=== PATIENT | female | born 1960 | race Caucasian/White ===

== ENCOUNTER 2016-06-03 12:58 | Outpatient (CLI) | payer BC | END 2016-06-03 12:59 | disposition home or self-care (01) | DX: Z12.31 Encounter for screening mammogram for malignant neoplasm of breast (principal) ==

== ENCOUNTER 2016-08-22 11:01 | Outpatient (CLI) | payer BC ==
[2016-08-22 11:21] LABS: BASOPHILS # (AUTO) 0.1 10^3/uL (0.0-0.1); BASOPHILS % (AUTO) 1.2 %; EOSINOPHILS # (AUTO) 0.4 10^3/uL (0.0-0.7); EOSINOPHILS % (AUTO) 6.2 %; HCT - HEMATOCRIT 39.1 % (37.0-47.0); HGB - HEMOGLOBIN 13.4 g/dL (12.0-16.0); LYMPHOCYTES # (AUTO) 2.6 10^3/uL (1.5-3.5); LYMPHOCYTES % (AUTO) 39.6 %; MEAN CORPUSCULAR HEMOGLOBIN 29.6 pg (27.0-31.0); MEAN CORPUSCULAR HGB CONC 34.1 g/dL (32.0-36.0); MEAN CORPUSCULAR VOLUME 86.8 fL (81.0-99.0); MEAN PLATELET VOLUME 9.2 fL (7.9-10.8); MONOCYTES # (AUTO) 0.4 10^3/uL (0.0-1.0); MONOCYTES % (AUTO) 5.6 %; NEUTROPHILS # (AUTO) 3.1 10^3/uL (1.5-6.6); NEUTROPHILS % (AUTO) 47.4 %; NUCLEATED RED BLOOD CELLS AUTO 0.1 /100WBC; RED BLOOD COUNT 4.51 10^6/uL (4.20-5.40); RED CELL DISTRIBUTION WIDTH 12.4 % (12.0-15.0); UNCORRECTED WHITE BLOOD COUNT 6.5 x10^3/uL; WHITE BLOOD COUNT 6.5 x10^3/uL (4.8-10.8)
[2016-08-22 11:38] LABS: ALBUMIN/GLOBULIN RATIO 1.5 (1.0-2.2); BILIRUBIN,TOTAL 0.7 mg/dL (0.2-1.0); BUN - BLOOD UREA NITROGEN 20 mg/dL (6-20); CALCIUM 9.5 mg/dL (8.5-10.3); CARBON DIOXIDE - CO2 28 mmol/L (21-32); CHLORIDE 103 mmol/L (101-111); CHOL/HDL RATIO 5.9 (<4.4); CHOLESTEROL 267 mg/dL; CREATININE 0.8 mg/dL (0.4-1.0); GFR - MDRD 74 (>89); GLUCOSE 97 mg/dL (70-100); HDL CHOLESTEROL 45 mg/dL; POTASSIUM 4.1 mmol/L (3.5-5.0); SODIUM 140 mmol/L (135-145); TOTAL PROTEIN 7.3 g/dL (6.7-8.2); TRIGLYCERIDES 198 mg/dL; VLDL CHOLESTEROL 40 mg/dL
== END 2016-08-22 11:02 | disposition home or self-care (01) ==
LOC: LAB 11:01
PROVIDERS: ATTEND Physician Assistant Medical
DX: Z00.00 Encounter for general adult medical examination without abnormal findings (principal); E55.9 Vitamin D deficiency, unspecified; Z79.899 Other long term (current) drug therapy
CPT/HCPCS: 36415; 80053; 80061; 82306; 84443; 85025

== ENCOUNTER 2016-11-15 11:16 | Outpatient (CLI) | payer BC | END 2016-11-15 11:17 | disposition home or self-care (01) | LOC: LAB 11:16 | PROVIDERS: ATTEND Physician Assistant Medical | DX: E55.9 Vitamin D deficiency, unspecified (principal); Z79.899 Other long term (current) drug therapy | CPT/HCPCS: 36415; 82306 ==

== ENCOUNTER 2017-03-25 15:30 | Emergency (ER) | payer BC ==
[2017-03-25 15:58] LABS: BASOPHILS # (AUTO) 0.1 10^3/uL (0.0-0.1); BASOPHILS % (AUTO) 0.8 %; EOSINOPHILS # (AUTO) 0.1 10^3/uL (0.0-0.7); EOSINOPHILS % (AUTO) 1.9 %; HCT - HEMATOCRIT 41.9 % (37.0-47.0); HGB - HEMOGLOBIN 13.9 g/dL (12.0-16.0); LYMPHOCYTES # (AUTO) 2.5 10^3/uL (1.5-3.5); LYMPHOCYTES % (AUTO) 30.8 %; MEAN CORPUSCULAR HEMOGLOBIN 29.5 pg (27.0-31.0); MEAN CORPUSCULAR HGB CONC 33.2 g/dL (32.0-36.0); MEAN CORPUSCULAR VOLUME 88.8 fL (81.0-99.0); MEAN PLATELET VOLUME 9.1 fL (7.9-10.8); MONOCYTES # (AUTO) 0.5 10^3/uL (0.0-1.0); MONOCYTES % (AUTO) 6.2 %; NEUTROPHILS # (AUTO) 4.8 10^3/uL (1.5-6.6); NEUTROPHILS % (AUTO) 60.3 %; RED BLOOD COUNT 4.72 10^6/uL (4.20-5.40); RED CELL DISTRIBUTION WIDTH 12.6 % (12.0-15.0)
--- NOTE | 2017-03-25 16:04 | ED Physician Documentation ---
PD HPI CHEST PAIN - Stated complaint Stated Complaint: CHEST PX - Chief complaint Chief Complaint: Cardiac - History obtained from History obtained from: Patient, Family - History of Present Illness Timing - onset: Enter time (399), Today Timing - onset during: Sleep Timing - duration: Minutes Timing - details: Abrupt onset, Waxing and waning Quality: Pressure, Throbbing Location: Substernal Radiation: Other (across anterior chest) Improved by: Rest Associated symptoms: Feeling faint / dizzy. No: Shortness of air, Diaphoresis, Nausea, Vomiting, General Weakness, Palpitations, Cough Similar symptoms before: Has not had sx before Recently seen: Not recently seen - Additional information Additional information: 56-year-old female was awakened from sleep with a nightmare this morning at about 4:00 in the morning. She felt palpitations in her chest pressure which resolved and she was able to get back to sleep. She went to the gym this morning did her normal workout and felt no change or disability associated with her working out this morning. This afternoon at about 2:30 in the afternoon she had a second episode of palpitations and chest pressure. She indicates the pressure is substernal without radiation and without other salient features there was no diaphoresis nausea or shortness of breath. She does have a family history positive for father of a massive [place] in his 60s.She is now anxious regarding these episodes. She has withdrawn from caffeine and did need to take ibuprofen on an empty stomach last week. Review of Systems Constitutional: denies: Fever, Chills, Myalgias, Fatigue, Sweats Eyes: denies: Loss of vision, Decreased vision Ears: denies: Loss of hearing, Ear pain Nose: denies: Rhinorrhea / runny nose, Congestion Throat: denies: Sore throat Cardiac: reports: Chest pain / pressure, Palpitations. denies: Pedal edema, Calf pain Respiratory: denies: Dyspnea, Cough GI: denies: Abdominal Pain, Nausea, Vomiting : denies: Dysuria, Frequency Skin: denies: Rash, Lesions Musculoskeletal: denies: Neck pain, Back pain, Extremity pain, Joint pain, Extremity swelling Neurologic: denies: Generalized weakness, Focal weakness, Numbness PD PAST MEDICAL HISTORY - Past Medical History Past Medical History: Yes Respiratory: Asthma, Cystic fibrosis, Other Endocrine/Autoimmune: None GI: GERD, Colon polyps, Diverticulitis, Other : None HEENT: Chronic vision loss Psych: None Musculoskeletal: None Derm: None Other Past Medical History: ABPA - Past Surgical History Past Surgical History: Yes General: Appendectomy, Colonoscopy, EGD 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, 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 HEENT: Tonsil/Adenoidectomy - Present Medications Home Medications: Ambulatory Orders Medication Instructions Recorded Confirmed Esomeprazole Magnesium [Nexium 2 tab PO BID 01/12/16 03/25/17 24Hr] Albuterol 2.5 mg INH Q4H PRN 03/25/17 03/25/17 Sucralfate [Carafate] 1 gm PO ACHS #300 ml 03/25/17 - Allergies Allergies/Adverse Reactions: Allergies Allergy/AdvReac Type Severity Reaction Status Date / Time Gadolinium-Containing Allergy Severe Anaphylaxis Verified 03/25/17 15:43 Contrast Medi Iodinated Contrast- Oral and Allergy Severe Anaphylaxis Verified 03/25/17 15:43 IV Dye morphine Allergy Mild Unknown Verified 03/25/17 15:43 levofloxacin [From Levaquin] Allergy Unknown Verified 03/25/17 15:43 codeine [Codeine] AdvReac Intermediate Hallucinati Verified 03/25/17 15:43 ons mushrooms Allergy Severe Anaphylaxis Uncoded 03/25/17 15:43 walnuts Allergy Severe Anaphylaxis Uncoded 03/25/17 15:43 tape Allergy Intermediate Itching Uncoded 03/25/17 15:43 - Social History Does the pt smoke?: No Smoking Status: Never smoker Does the pt drink ETOH?: No Does the pt have substance abuse?: No - Immunizations Immunizations are current?: Yes - POLST Patient has POLST: Yes POLST Status: Full Code PD ED PE NORMAL - Vitals Vital signs reviewed: Yes (hypertensive) - General General: Alert and oriented X 3, No acute distress, Well developed/nourished - HEENT HEENT: Atraumatic, PERRL, EOMI - Neck Neck: Supple, no meningeal sign - Cardiac Cardiac: RRR, No murmur - Respiratory Respiratory: No respiratory distress, Clear bilaterally, Other (no chest wall tenderness) - Abdomen Abdomen: Soft, Non tender - Back Back: No CVA TTP, No spinal TTP - Derm Derm: Normal color, Warm and dry, No rash - Extremities Extremities: No deformity, No edema - Neuro Neuro: No motor deficit, No sensory deficit Eye Opening: Spontaneous Motor: Obeys Commands Verbal: Oriented GCS Score: 15 - Psych Psych: Normal mood, Normal affect Results - Vitals Vitals: Vital Signs - 24 hr 03/25/17 03/25/17 15:34 17:01 Temperature 36.7 C Heart Rate 88 92 Respiratory 20 17 Rate Blood Pressure 188/69 H 147/100 H O2 Saturation 99 98 Oxygen O2 Source Room air - EKG (time done) 1534 Rate: Rate (enter#) (95) Rhythm: NSR Ischemia: ST depression (subtle V2-4), Q waves (inferior ) Compare to prior EKG: Changed from prior EKG (SPT 3-14 the q waves are new as are diminished anterior forces and anderiro ST depression. ) Computer interpretation: Agree with computer - Labs Labs: Laboratory Tests 03/25/17 03/25/17 03/25/17 15:41 15:41 15:41 WBC 8.0 RBC 4.72 Hgb 13.9 Hct 41.9 MCV 88.8 MCH 29.5 MCHC 33.2 RDW 12.6 Plt Count 205 MPV 9.1 Neut # 4.8 Lymph # 2.5 [place] # 0.5 Eos # 0.1 Baso # 0.1 Absolute Nucleated RBC 0.00 Nucleated RBC % 0.0 Sodium 139 Potassium 3.3 L Chloride 102 Carbon Dioxide 26 Anion Gap 11.0 BUN 17 Creatinine 0.9 Estimated GFR (MDRD) 65 L Glucose 100 Calcium 10.0 Total Bilirubin 0.3 AST 25 ALT 27 Alkaline Phosphatase 73 Troponin I < 0.04 Total Protein 7.8 Albumin 5.0 Globulin 2.8 Albumin/Globulin Ratio 1.8 Lipase 22 Urine Color Urine Clarity Urine pH Ur Specific [place] Urine Protein Urine Glucose (UA) Urine Ketones Urine Occult Blood Urine Nitrite Urine Bilirubin Urine Urobilinogen Ur Leukocyte Esterase Urine RBC Urine WBC Ur Squamous Epith Cells Urine Bacteria Ur Microscopic Review Urine Culture Comments 03/25/17 03/25/17 16:18 17:35 WBC RBC Hgb Hct MCV MCH MCHC RDW Plt Count MPV Neut # Lymph # [place] # Eos # Baso # Absolute Nucleated RBC Nucleated RBC % Sodium Potassium Chloride Carbon Dioxide Anion Gap BUN Creatinine Estimated GFR (MDRD) Glucose Calcium Total Bilirubin AST ALT Alkaline Phosphatase Troponin I < 0.04 Total Protein Albumin Globulin Albumin/Globulin Ratio Lipase Urine Color YELLOW Urine Clarity CLEAR Urine pH 6.0 Ur Specific [place] <=1.005 Urine Protein NEGATIVE Urine Glucose (UA) NEGATIVE Urine Ketones NEGATIVE Urine Occult Blood SMALL H Urine Nitrite NEGATIVE Urine Bilirubin NEGATIVE Urine Urobilinogen 0.2 (NORMAL) Ur Leukocyte Esterase NEGATIVE Urine RBC 0-5 Urine WBC 0-3 Ur Squamous Epith Cells NONE SEEN Urine Bacteria None Seen Ur Microscopic Review INDICATED Urine Culture Comments NOT INDICATED - Rads (name of study) 2 veiw chest Radiology: Prelim report reviewed (Impression: No acute cardiopulmonary abnormality.), EMP read indepedently, See rad report Procedures - Bedside sono Bedside sono by EMP: With use of bedside ultrasound the kidneys are imaged there is no significant hydronephrosis on either side. The kidneys are sonographically nontender. PD MEDICAL DECISION MAKING - ED course Complexity details: reviewed old records, reviewed results, re-evaluated patient , considered differential, d/w patient, d/w family ED course: 56-year-old female presents to the emergency department with some atypical chest pressure that is nearly resolved at the time of her arrival to the department. She does not have any evidence of ST elevation [place]. She does have some new Q waves and some ST depression that is subtle but present. Her initial troponin is negative and she is administered a GI cocktail. The GI cocktail resolves the minimal symptoms that she is having in the ED temporarily. She does have a history of recent administration of ibuprofen on an empty stomach. She subsequently is given Carafate 1 g orally. A second troponin is ordered. Departure - Departure Disposition: 01 Home, Self Care Clinical Impression: Atypical chest pain Gastritis Qualifiers: Gastritis type: unspecified gastritis Chronicity: acute Gastritis bleeding: without bleeding Qualified Code(s): K29.00 - Acute gastritis without bleeding Condition: Stable Instructions: ED Chest Pain Atypical Unkn Cause, ED PUD Vs Gastritis Follow-Up: Sharmin Oswald PA-C [Primary Care Provider] - Prescriptions: Sucralfate [Carafate] 1 gm PO ACHS #300 ml Comments: Today in the Emergency Department your blood pressure was elevated. This can happen from the stress of the visit itself, from a current illness or circumstance or from uncontrolled hypertension. If you take blood pressure medications take your usual mediations, have your blood pressure re-checked in an appropriate setting and follow up any elevation with your primary care doctor.
[2017-03-25 16:11] LABS: ALBUMIN/GLOBULIN RATIO 1.8 (1.0-2.2); BILIRUBIN,TOTAL 0.3 mg/dL (0.2-1.0); CREATININE 0.9 mg/dL (0.4-1.0); POTASSIUM 3.3 mmol/L (3.5-5.0); TOTAL PROTEIN 7.8 g/dL (6.7-8.2)
[2017-03-25 16:33] LABS: BILIRUBIN,URINE NEGATIVE (NEGATIVE)
[2017-03-25 16:35] LABS: UA w/ MICROSCOPIC CHARGE YES
--- NOTE | 2017-03-25 16:46 | XRAY Preliminary Report ---
Exam: XR CHEST 2 VIEW PA/LAT IMPRESSION: No acute cardiopulmonary abnormality. [facility] SITE ID: [id number]
[2017-03-25 16:48] LABS: UR CULTURE IF IND NOT INDICATED; WBC,URINE 0-3 /HPF (0-5)
[2017-03-25] MEDS ORDERED: LIDOCAINE VISCOUS 2% 15 ML UDC MM STA (16:48)
--- NOTE | 2017-03-25 16:48 | XRAY Report ---
EXAM: CHEST RADIOGRAPHY EXAM DATE: 03/25/2017 04:17 PM. CLINICAL HISTORY: Chest pain. COMPARISON: CT chest 06/13/2015. Chest radiograph 06/10/2015. TECHNIQUE: 2 views. FINDINGS: Lungs/Pleura: Normal volumes. Interval resolution of previously demonstrated right middle lobe opacif ication. No new focal opacity. No pleural effusion or pneumothorax. Mediastinum: Normal cardiomediastinal contour. Other: Mild right convex curvature of the lower thoracic spine. IMPRESSION: No acute cardiopulmonary abnormality. [facility] Referring Provider Line: [phone] SITE ID: [id number]
[2017-03-25] MEDS ORDERED: MAG HYDROX/AL HYDROX/SIMETH 30 ML UDC PO STA (16:49)
[2017-03-25] MEDS ORDERED: POTASSIUM BICARB 25 MEQ TABLET PO STA (16:56)
[2017-03-25 17:02] VITALS: BP 147/100
[2017-03-25] MEDS ORDERED: SUCRALFATE 1 GM/10 ML UDC PO STA (17:15)
== END 2017-03-25 18:33 | disposition home or self-care (01) ==
LOC: ED 15:30
DX: R07.89 Other chest pain (principal); K29.00 Acute gastritis without bleeding; R03.0 Elevated blood-pressure reading, without diagnosis of hypertension; J45.909 Unspecified asthma, uncomplicated; J84.10 Pulmonary fibrosis, unspecified; K21.9 Gastro-esophageal reflux disease without esophagitis; Z86.010 Personal history of colon polyps; Z87.19 Personal history of other diseases of the digestive system
CPT/HCPCS: 36415; 71020; 80053; 81001; 83690; 84484; 85025; 93005; 99284; A9270; 81003; 87086

== ENCOUNTER 2017-06-06 07:59 | Outpatient (CLI) | payer BC ==
--- NOTE | 2017-06-07 17:44 | Mammography Report ---
DIGITAL SCREENING MAMMOGRAM: 06/06/2017 CLINICAL INDICATION: A 56-year-old with history of benign right breast biopsy for screening. COMPARISON: 06/2016, 06/2015, 05/2014, 01/2012, 10/2010, 06/2009. TECHNIQUE: Routine CC and MLO projections were obtained of the breasts. FINDINGS: The breasts demonstrate scattered fibroglandular densities bilaterally. Post-biopsy changes in the right breast are stable. Coarse, typically benign calcifications are present. No suspicious masses, clustered microcalcifications, or regions of architectural distortion are identified. IMPRESSION: BENIGN FINDINGS. RECOMMENDATION: ROUTINE ANNUAL SCREENING UNLESS OTHERWISE CLINICALLY INDICATED. BIRADS category 2 benign findings. STANDARD QUALIFYING STATEMENTS 1. This examination was reviewed with the aid of Computed-Aided Detection (CAD). 2. A negative or benign imaging report should not delay biopsy if clinically suspicious findings are present. Consider surgical consultation if warranted. More than 5% of cancers are not identified by imaging. 3. Dense breasts may obscure an underlying neoplasm. TD: 06/07/2017 17:43
== END 2017-06-06 08:00 | disposition home or self-care (01) ==
LOC: DI 07:59
PROVIDERS: ATTEND Physician Assistant Medical
DX: Z12.31 Encounter for screening mammogram for malignant neoplasm of breast (principal)
CPT/HCPCS: 77067

== ENCOUNTER 2017-12-25 06:46 | Outpatient (CLI) | payer BC ==
[2017-12-25 07:22] LABS: ALBUMIN 4.2 g/dL (3.2-5.5); ALBUMIN/GLOBULIN RATIO 1.6 (1.0-2.2); ALKALINE PHOSPHATASE 69 IU/L (42-121); ALT ALANINE AMINOTRANSFERASE 24 IU/L (10-60); AST ASPARTATE AMINOTRANSFERASE 22 IU/L (10-42); BILIRUBIN,TOTAL 0.3 mg/dL (0.2-1.0); BUN - BLOOD UREA NITROGEN 14 mg/dL (6-20); CALCIUM 8.8 mg/dL (8.5-10.3); CARBON DIOXIDE - CO2 25 mmol/L (21-32); CHLORIDE 106 mmol/L (101-111); CHOL/HDL RATIO 7.7 (<4.4); CHOLESTEROL 276 mg/dL; CREATININE 0.7 mg/dL (0.4-1.0); GFR - MDRD 86 (>89); GLUCOSE 116 mg/dL (70-100); HDL CHOLESTEROL 36 mg/dL; LDL CHOLESTEROL,CALCULATED 194 mg/dL; LDL/HDL RATIO 5.4 (<4.4); SODIUM 140 mmol/L (135-145); TOTAL PROTEIN 6.8 g/dL (6.7-8.2); VLDL CHOLESTEROL 46 mg/dL
[2017-12-25 09:00] LABS: BASOPHILS % (AUTO) 0.6 %; EOSINOPHILS # (AUTO) 0.3 10^3/uL (0.0-0.7); EOSINOPHILS % (AUTO) 4.2 %; HGB - HEMOGLOBIN 14.2 g/dL (12.0-16.0); LYMPHOCYTES # (AUTO) 2.5 10^3/uL (1.5-3.5); LYMPHOCYTES % (AUTO) 42.5 %; MEAN CORPUSCULAR HEMOGLOBIN 29.7 pg (27.0-31.0); MEAN CORPUSCULAR HGB CONC 33.8 g/dL (32.0-36.0); MEAN CORPUSCULAR VOLUME 87.9 fL (81.0-99.0); MEAN PLATELET VOLUME 9.9 fL (7.9-10.8); MONOCYTES # (AUTO) 0.5 10^3/uL (0.0-1.0); MONOCYTES % (AUTO) 7.9 %; NEUTROPHILS # (AUTO) 2.7 10^3/uL (1.5-6.6); NEUTROPHILS % (AUTO) 44.8 %; PLT - PLATELET COUNT 198 10^3/uL (130-450); RED BLOOD COUNT 4.78 10^6/uL (4.20-5.40); RED CELL DISTRIBUTION WIDTH 12.9 % (12.0-15.0)
[2017-12-26 13:12] LABS: HEPATITIS C ANTIBODY NON-REACTIVE (NON-REACTIVE)
== END 2017-12-25 06:47 | disposition home or self-care (01) ==
LOC: LAB 06:46
PROVIDERS: ATTEND Physician Assistant Medical
DX: Z00.00 Encounter for general adult medical examination without abnormal findings (principal); E55.9 Vitamin D deficiency, unspecified; Z79.899 Other long term (current) drug therapy; Z13.818 Encounter for screening for other digestive system disorders; E78.2 Mixed hyperlipidemia
CPT/HCPCS: 36415; 80053; 80061; 82306; 83721; 84443; 85025; 86803

== ENCOUNTER 2018-02-20 18:48 | Outpatient (CLI) | payer BC ==
[2018-02-20 19:31] LABS: ALBUMIN 4.5 g/dL (3.2-5.5); ALBUMIN/GLOBULIN RATIO 1.6 (1.0-2.2); ALKALINE PHOSPHATASE 68 IU/L (42-121); ALT ALANINE AMINOTRANSFERASE 27 IU/L (10-60); AST ASPARTATE AMINOTRANSFERASE 22 IU/L (10-42); BILIRUBIN,TOTAL 0.9 mg/dL (0.2-1.0); BUN - BLOOD UREA NITROGEN 11 mg/dL (6-20); CALCIUM 9.2 mg/dL (8.5-10.3); CARBON DIOXIDE - CO2 27 mmol/L (21-32); CHLORIDE 105 mmol/L (101-111); CHOL/HDL RATIO 4.6 (<4.4); CHOLESTEROL 161 mg/dL; CREATININE 0.9 mg/dL (0.4-1.0); GFR - MDRD 65 (>89); GLUCOSE 104 mg/dL (70-100); HDL CHOLESTEROL 35 mg/dL; LDL CHOLESTEROL,CALCULATED 91 mg/dL; LDL/HDL RATIO 2.6 (<4.4); SODIUM 138 mmol/L (135-145); TOTAL PROTEIN 7.3 g/dL (6.7-8.2); VLDL CHOLESTEROL 35 mg/dL
[2018-02-20 19:48] LABS: HB2 TOTAL 14.6 g/dL; HEMOGLOBIN A1C 0.56 g/dL; HEMOGLOBIN A1C % 5.7 % (4.6-6.2)
[2018-02-20 20:45] LABS: THYROID STIMULATING HORMONE 2.15 uIU/mL (0.34-5.60)
[2018-02-20 20:47] LABS: FREE T4 (FREE THYROXINE) 0.9 ng/dL (0.58-1.64)
== END 2018-02-20 18:49 | disposition home or self-care (01) ==
LOC: LAB 18:48
PROVIDERS: ATTEND Physician Assistant Medical
DX: R73.9 Hyperglycemia, unspecified (principal); Z79.899 Other long term (current) drug therapy; E78.2 Mixed hyperlipidemia; R94.6 Abnormal results of thyroid function studies
CPT/HCPCS: 36415; 80053; 80061; 81599; 83036; 83721; 84439; 84443; 84481

== ENCOUNTER 2018-03-12 13:08 | Day surgery (SDC) | payer BC ==
[2018-03-12] MEDS ORDERED: LACTATED RINGERS 1,000 ML IV ONE (13:25)
[2018-03-12] MEDS ORDERED: LIDO GARGLE 30 ML BOTTLE ONE (14:09)
[2018-03-12] MEDS ORDERED: fentaNYL 100 MCG/2 ML VIAL IVP ONE (14:11)
[2018-03-12] MEDS ORDERED: MIDAZOLAM 2 MG/2 ML VIAL IVP ONE (14:11)
[2018-03-12] MEDS ORDERED: BENZOCAINE/TETRACAINE/BUTAMBEN 20 GM TOP ONE (14:22)
[2018-03-12] MEDS ORDERED: LIDO GARGLE 30 ML BOTTLE PO ONE (14:22)
[2018-03-12] MEDS ORDERED: BENZOCAINE/TETRACAINE/BUTAMBEN 20 GM ONE (14:27)
[2018-03-12 16:01] VITALS: BP 104/60
== END 2018-03-12 13:09 | disposition home or self-care (01) ==
LOC: SDS 13:08
PROVIDERS: ATTEND Surgery
PROC: 0DB68ZX Excision of Stomach, Via Natural or Artificial Opening Endoscopic, Diagnostic (ICD-10-PCS; 2018-03-12)
PROC: 0DB98ZZ Excision of Duodenum, Via Natural or Artificial Opening Endoscopic (ICD-10-PCS; principal; 2018-03-12 14:15)
DX: K21.9 Gastro-esophageal reflux disease without esophagitis (principal); K29.70 Gastritis, unspecified, without bleeding; D13.2 Benign neoplasm of duodenum; J45.909 Unspecified asthma, uncomplicated; E66.9 Obesity, unspecified; Z68.34 Body mass index [BMI] 34.0-34.9, adult; Z79.51 Long term (current) use of inhaled steroids; Z87.11 Personal history of peptic ulcer disease; Z86.010 Personal history of colon polyps
CPT/HCPCS: 43239; 43251; 87081; A9270; J7120

== ENCOUNTER 2018-05-23 21:09 | Outpatient (CLI) | payer BC ==
[2018-05-23 21:48] LABS: CHOL/HDL RATIO 7.4 (<4.4); CHOLESTEROL 238 mg/dL; HDL CHOLESTEROL 32 mg/dL; LDL CHOLESTEROL,CALCULATED 166 mg/dL; LDL/HDL RATIO 5.2 (<4.4); VLDL CHOLESTEROL 40 mg/dL
== END 2018-05-23 21:10 | disposition home or self-care (01) ==
LOC: LAB 21:09
PROVIDERS: ATTEND Physician Assistant Medical
DX: E78.2 Mixed hyperlipidemia (principal); Z79.899 Other long term (current) drug therapy
CPT/HCPCS: 36415; 80061; 83721

== ENCOUNTER 2018-06-30 08:37 | Outpatient (CLI) | payer BC ==
--- NOTE | 2018-07-02 10:58 | Mammography Report ---
Reason: SCREENING MAMMO Procedure Date: 06/30/2018 Accession Number: [id number] / [id number] Procedure: SHERI - Screening Mammo w/Woo CPT Code: FULL RESULT: EXAM: Screening Mammo w/Woo DATE: 06/30/2018 9:23 AM CLINICAL HISTORY: Routine screening. No reported personal or family history of breast cancer. Prior history of benign right breast surgery. TECHNIQUE: (B) - Bilateral Bilateral CC and MLO views were obtained. COMPARISON: 06/06/2017 through 05/22/2014 FINDINGS: Bilateral breasts: There are multiple, stable, similar appearing, round and oval, circumscribed margin, benign-appearing masses. No suspicious masses, clustered microcalcifications, or regions of architectural distortion are identified. PARENCHYMAL PATTERN: (A) - The breasts demonstrate scattered fibroglandular densities bilaterally. IMPRESSION: Benign findings RECOMMENDATION: (ANNUAL) - Recommend routine annual screening mammography. BI-RADS CATEGORY: (2) - Benign Findings STANDARD QUALIFYING STATEMENTS: 1. This examination was not reviewed with the aid of Computer-Aided Detection (CAD). 2. A negative or benign imaging report should not preclude biopsy if clinically suspicious findings are present. 3. Dense breasts may obscure an underlying neoplasm. 4. This examination was reviewed with the aid of 3D breast imaging (tomosynthesis).
== END 2018-06-30 08:38 | disposition home or self-care (01) ==
LOC: DI 08:37
DX: Z12.31 Encounter for screening mammogram for malignant neoplasm of breast (principal)
CPT/HCPCS: 77063; 77067

== ENCOUNTER 2018-10-23 12:56 | Outpatient (CLI) | payer BC | END 2018-10-23 12:57 | disposition home or self-care (01) | LOC: LAB 12:56 | PROVIDERS: ATTEND Family Medicine | DX: Z00.00 Encounter for general adult medical examination without abnormal findings (principal) | CPT/HCPCS: 36415; 81599; 86480 ==

== ENCOUNTER 2018-11-09 13:15 | Emergency (ER) | payer BC ==
--- NOTE | 2018-11-09 13:38 | ED Physician Documentation ---
History of Present Illness - Stated complaint Stated Complaint: ABD PX - Chief complaint Chief Complaint: Abd Pain - History obtained from History obtained from: Patient - History of Present Illness Timing: Yesterday - Additonal information Additional information: Patient is a 58-year-old female with history of diverticulosis presenting with significant left lower quadrant pain that started at approximately 9 PM last night. Patient reports pain similar to previous episodes of diverticulitis. Pain does not radiate. Patient reports nausea without significant vomiting. No changes in urination. Normal bowel movement yesterday and slightly decreased bowel movement today. No fever. No other improving or worsening factors noted. Review of Systems Constitutional: denies: Fever GI: reports: Abdominal Pain, Nausea. 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 HEENT: Tonsil/Adenoidectomy - Present Medications Home Medications: Ambulatory Orders Medication Instructions Recorded Confirmed Esomeprazole Magnesium [Nexium 2 tab PO BID 01/12/16 03/12/18 24Hr] Albuterol 2.5 mg INH Q4H PRN 03/25/17 03/12/18 Metronidazole [Flagyl] 500 mg PO TID 7 Days tablet 11/09/18 - Allergies Allergies/Adverse Reactions: Allergies Allergy/AdvReac Type Severity Reaction Status Date / Time Gadolinium-Containing Allergy Severe Anaphylaxis Verified 03/25/17 15:43 Contrast Medi Iodinated Contrast Media Allergy Severe Anaphylaxis Verified 03/25/17 15:43 morphine Allergy Mild Unknown Verified 03/25/17 15:43 ciprofloxacin [From Cipro] Allergy Unknown Verified 11/09/18 13:26 levofloxacin [From Levaquin] Allergy Unknown Verified 03/25/17 15:43 codeine [Codeine] AdvReac Intermediate Hallucinati Verified 03/25/17 15:43 ons latex AdvReac Itching Verified 03/09/18 14:34 mushrooms Allergy Severe Anaphylaxis Uncoded 03/25/17 15:43 walnuts Allergy Severe Anaphylaxis Uncoded 03/25/17 15:43 tape Allergy Intermediate Itching Uncoded 03/25/17 15:43 - Social History Does the pt smoke?: No Smoking Status: Never smoker Does the pt drink ETOH?: No Does the pt have substance abuse?: No - Immunizations Immunizations are current?: Yes - POLST Patient has POLST: Yes POLST Status: Full Code PD ED PE NORMAL - Vitals Vital signs reviewed: Yes - General General: Alert and oriented X 3, No acute distress, Well developed/nourished, Other (Uncomfortable appearing) - HEENT HEENT: Atraumatic, Moist mucous membranes - Neck Neck: Supple, no meningeal sign - Cardiac Cardiac: RRR, No murmur - Respiratory Respiratory: No respiratory distress, Clear bilaterally - Abdomen Abdomen: Soft, Non distended. No: Non tender (Left LLQ tenderness) - Derm Derm: Normal color, Warm and dry, No rash - Extremities Extremities: No deformity, No tenderness to palpate - Neuro Neuro: Alert and oriented X 3, No motor deficit, No sensory deficit - Psych Psych: Normal mood, Normal affect Results - Vitals Vitals: Vital Signs - 24 hr 11/09/18 11/09/18 11/09/18 13:22 15:00 15:24 Temperature 35.7 C L 36.7 C Heart Rate 108 H 85 86 Respiratory 14 16 16 Rate Blood Pressure 149/83 H 132/70 H 132/70 H O2 Saturation 100 98 98 Oxygen O2 Source Room air - Labs Labs: Laboratory Tests 11/09/18 11/09/18 11/09/18 13:52 13:52 13:52 WBC 11.3 H RBC 4.81 Hgb 14.0 Hct 43.0 MCV 89.4 MCH 29.1 MCHC 32.6 RDW 12.2 Plt Count 206 MPV 11.3 H Neut # (Auto) 7.8 H Lymph # (Auto) 2.3 [place] # (Auto) 0.9 Eos # (Auto) 0.2 Baso # (Auto) 0.0 Absolute Nucleated RBC 0.00 Nucleated RBC % 0.0 Sodium 142 Potassium 3.8 Chloride 104 Carbon Dioxide 24 Anion Gap 14.0 H BUN 13 Creatinine 0.8 Estimated GFR (MDRD) 74 L Glucose 114 H Lactic Acid 0.8 Calcium 9.7 Total Bilirubin 0.8 AST 14 ALT 18 Alkaline Phosphatase 83 Total Protein 7.6 Albumin 4.3 Globulin 3.3 Albumin/Globulin Ratio 1.3 Lipase 24 Urine Color Urine Clarity Urine pH Ur Specific [place] Urine Protein Urine Glucose (UA) Urine Ketones Urine Occult Blood Urine Nitrite Urine Bilirubin Urine Urobilinogen Ur Leukocyte Esterase Urine RBC Urine WBC Ur Squamous Epith Cells Urine Bacteria Ur Microscopic Review Urine Culture Comments 11/09/18 14:20 WBC RBC Hgb Hct MCV MCH MCHC RDW Plt Count MPV Neut # (Auto) Lymph # (Auto) [place] # (Auto) Eos # (Auto) Baso # (Auto) Absolute Nucleated RBC Nucleated RBC % Sodium Potassium Chloride Carbon Dioxide Anion Gap BUN Creatinine Estimated GFR (MDRD) Glucose Lactic Acid Calcium Total Bilirubin AST ALT Alkaline Phosphatase Total Protein Albumin Globulin Albumin/Globulin Ratio Lipase Urine Color YELLOW Urine Clarity CLEAR Urine pH 6.5 Ur Specific [place] <=1.005 Urine Protein NEGATIVE Urine Glucose (UA) NEGATIVE Urine Ketones NEGATIVE Urine Occult Blood MODERATE H Urine Nitrite NEGATIVE Urine Bilirubin NEGATIVE Urine Urobilinogen 0.2 (NORMAL) Ur Leukocyte Esterase NEGATIVE Urine RBC 0-5 Urine WBC 0-3 Ur Squamous Epith Cells RARE Squamous Urine Bacteria None Seen Ur Microscopic Review INDICATED Urine Culture Comments NOT INDICATED PD MEDICAL DECISION MAKING - ED course Complexity details: reviewed results, re-evaluated patient, considered differential, d/w patient ED course: Patient presenting with left lower quadrant abdominal discomfort that is similar to her previous episodes of diverticulitis. Patient started on IV fluids and declined nausea and pain medication. Screening lab work returned relatively unremarkable, as did urinalysis. CT imaging found incidental findings, as well as colon wall thickening although no other obstruction, abscess, or diverticulitis changes. Advised patient of results and recommendations, as well as provided her with read of CT which included incidental finding information. Discussed treatment of general colitis with antibiotics. Patient is unable to tolerate ciprofloxacin or medications in that family and decided that Flagyl will be most appropriate otherwise. Also discussed other supportive cares, return precautions, and follow-up. Patient voiced understanding and is comfort able with discharge plan. First dose of antibiotics provided in the ED. Departure - Departure Disposition: 01 Home, Self Care Clinical Impression: Abdominal pain Qualifiers: Abdominal location: left lower quadrant Qualified Code(s): R10.32 - Left lower quadrant pain Condition: Good Instructions: ED Abdominal Pain Unkn Cause Follow-Up: Viral Charles MD [Primary Care Provider] - Within 3 Days Prescriptions: Metronidazole [Flagyl] 500 mg PO TID 7 Days tablet Comments: Please take antibiotics as prescribed for colitis changes. Recommend hydration with Powerade/Gatorade and advancing diet as tolerated with small, bland meals. Do recommend taking antibiotics with a small amount of food to avoid upset stomach.Please follow-up with primary care physician in next 2 to 3 days and return to ED sooner if experience worsening symptoms or other concerns.
[2018-11-09] MEDS ORDERED: SODIUM CHLORIDE 0.9% 1,000 ML IV ONE (13:44)
[2018-11-09 13:59] LABS: BASOPHILS % (AUTO) 0.4 %; EOSINOPHILS # (AUTO) 0.2 10^3/uL (0.0-0.7); LYMPHOCYTES # (AUTO) 2.3 10^3/uL (1.5-3.5); LYMPHOCYTES % (AUTO) 20.4 %; MEAN CORPUSCULAR HEMOGLOBIN 29.1 pg (27.0-31.0); MEAN CORPUSCULAR HGB CONC 32.6 g/dL (32.0-36.0); MEAN CORPUSCULAR VOLUME 89.4 fL (81.0-99.0); MEAN PLATELET VOLUME 11.3 fL (7.9-10.8); MONOCYTES # (AUTO) 0.9 10^3/uL (0.0-1.0); MONOCYTES % (AUTO) 7.6 %; NEUTROPHILS # (AUTO) 7.8 10^3/uL (1.5-6.6); NEUTROPHILS % (AUTO) 69.2 %; PLT - PLATELET COUNT 206 10^3/uL (130-450); RED BLOOD COUNT 4.81 10^6/uL (4.20-5.40); RED CELL DISTRIBUTION WIDTH 12.2 % (12.0-15.0); WHITE BLOOD COUNT 11.3 x10^3/uL (4.8-10.8)
[2018-11-09 14:11] LABS: ALBUMIN 4.3 g/dL (3.2-5.5); ALBUMIN/GLOBULIN RATIO 1.3 (1.0-2.2); BILIRUBIN,TOTAL 0.8 mg/dL (0.2-1.0); CALCIUM 9.7 mg/dL (8.5-10.3); CREATININE 0.8 mg/dL (0.4-1.0); TOTAL PROTEIN 7.6 g/dL (6.7-8.2)
[2018-11-09] MEDS ORDERED: IOVERSOL 320 100 ML VIAL IVP ONE ×2 (14:44→15:21)
[2018-11-09] MEDS ORDERED: diphenhydrAMINE 25 MG CAPSULE PO STA (14:45)
[2018-11-09 15:00] LABS: BILIRUBIN,URINE NEGATIVE (NEGATIVE); GLUCOSE, URINE (UA) NEGATIVE (NEGATIVE); KETONES,URINE (UA) NEGATIVE (NEGATIVE); LEUKOCYTE ESTERASE, URINE NEGATIVE (NEGATIVE); NITRITE,URINE NEGATIVE (NEGATIVE); OCCULT BLOOD,URINE MODERATE (NEGATIVE); PH,URINE 6.5 PH (5.0-7.5); PROTEIN,URINE NEGATIVE (NEGATIVE); UROBILINOGEN,URINE 0.2 (NORMAL) E.U./dL (NORMAL)
[2018-11-09 15:01] LABS: CLARITY,URINE CLEAR (CLEAR)
[2018-11-09 15:12] LABS: RBC,URINE 0-5 /HPF (0-5)
[2018-11-09 15:13] LABS: BACTERIA,URINE None Seen /HPF (None Seen); SQUAMOUS EPITHELIAL CELL,UR RARE Squamous (<= Few)
--- NOTE | 2018-11-09 15:48 | CT Report ---
Reason: Diverticulosis history, left lower quadrant pain Procedure Date: 11/09/2018 Accession Number: [id number] / [id number] Procedure: CT - Abdomen/Pelvis W CPT Code: FULL RESULT: EXAM: CT ABDOMEN AND PELVIS EXAM DATE: 11/09/2018 03:26 PM. CLINICAL HISTORY: Diverticulosis history, left lower quadrant pain. COMPARISONS: None. TECHNIQUE: Routine helical CT imaging was performed through the abdomen and pelvis. IV contrast: OPTI 320 90ML. Enteric contrast: No. Reconstructions: Coronal and sagittal. In accordance with CT protocol optimization, one or more of the following dose reduction techniques were utilized for this exam: automated exposure control, adjustment of mA and/or KV based on patient size, or use of iterative reconstructive technique. FINDINGS: Lung Bases: Unremarkable. Liver: Unremarkable. Gallbladder/Bile Ducts: Unremarkable. Spleen: Normal. Pancreas: Normal. Adrenal Glands: Normal. Kidneys: No stone, masses or hydronephrosis. Peritoneal Cavity/Bowel: There is mild colon diverticulosis. There is thickened bowel wall with pericolic fat stranding in the proximal sigmoid colon and small amount of pelvic free fluid, without loculated fluid, free air or adenopathy. No small bowel dilatation, or acute inflammatory process. The appendix is not visualized and no mass, fluid collection or fat stranding the bilateral abdomen seen. Pelvic Organs: There are multiple small calcified foci in the right ovary with a small simple cyst, 0.8 cm, without ovarian mass, complex cyst or enlargement. The bladder and visualized pelvic organs are within normal limits. Vasculature: No aneurysms or other significant abnormality. Bones: No significant abnormality. Other: There is small umbilical hernia, 1 cm containing fat without fat stranding. IMPRESSION: 1. Proximal sigmoid colon diverticulosis, with small amount for 20 pelvis, without drainable abscess. 2. Incidental note is made of multiple small calcified foci in the right ovary with a small simple cyst, 0.8 cm, without ovarian mass, complex cyst or enlargement; likely benign process, recommend pelvic ultrasound follow-up. [facility]
[2018-11-09] MEDS ORDERED: metroNIDAZOLE 250 MG TABLET PO STA (16:29)
[2018-11-09 16:39] VITALS: BP 132/81
== END 2018-11-09 16:40 | disposition home or self-care (01) ==
LOC: ED 13:15
DX: R10.32 Left lower quadrant pain (principal)
CPT/HCPCS: 36415; 74177; 80053; 81001; 83605; 83690; 85025; 96360; 99283; 99284; A9270; Q9967; 81003; 87086

== ENCOUNTER 2019-05-24 09:24 | Emergency (ER) | payer BC ==
--- NOTE | 2019-05-24 10:43 | ED Physician Documentation ---
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 No: Travel, Immunocompromised Similar symptoms before: Has not had sx before Review of Systems Constitutional: reports: Fever, Chills, Myalgias Eyes: reports: Photophobia (mild) Nose: reports: Rhinorrhea / runny nose, Congestion Throat: reports: Sore throat Cardiac: denies: Chest pain / pressure, Palpitations Respiratory: reports: Dyspnea, Cough Skin: denies: Rash Musculoskeletal: reports: Neck pain, Back pain Neurologic: reports: Generalized weakness. 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 HEENT: Tonsil/Adenoidectomy - Present Medications Home Medications: Ambulatory Orders Medication Instructions Recorded Confirmed Esomeprazole Magnesium [Nexium 2 tab PO BID 01/12/16 03/12/18 24Hr] Albuterol 2.5 mg INH Q4H PRN 03/25/17 03/12/18 Metronidazole [Flagyl] 500 mg PO TID 7 Days tablet 11/09/18 Doxycycline Monohydrate 100 mg PO BID #14 tablet 05/24/19 Ondansetron Odt [Zofran] 4 mg TL Q6H PRN #10 tablet 05/24/19 dexAMETHasone [Decadron] 4 mg PO DAILY #5 tablet 05/24/19 - Allergies Allergies/Adverse Reactions: Allergies Allergy/AdvReac Type Severity Reaction Status Date / Time Gadolinium-Containing Allergy Severe Anaphylaxis Verified 05/24/19 09:28 Contrast Medi Iodinated Contrast Media Allergy Severe Anaphylaxis Verified 02/21/20 09:28 morphine Allergy Mild Unknown Verified 05/24/19 09:28 ciprofloxacin [From Cipro] Allergy Unknown Verified 05/24/19 09:28 levofloxacin [From Levaquin] Allergy Unknown Verified 05/24/19 09:28 NSAIDS (Non-Steroidal Allergy Nausea Verified 05/24/19 09:45 Anti-Inflamma codeine [Codeine] AdvReac Intermediate Hallucinati Verified 05/24/19 09:28 ons latex AdvReac Itching Verified 05/24/19 09:28 mushrooms Allergy Severe Anaphylaxis Uncoded 05/24/19 09:28 walnuts Allergy Severe Anaphylaxis Uncoded 05/24/19 09:28 tape Allergy Intermediate Itching Uncoded 05/24/19 09:28 - Social History Does the pt smoke?: No Smoking Status: Never smoker Does the pt drink ETOH?: No Does the pt have substance abuse?: No - Immunizations Immunizations are current?: Yes - POLST Patient has POLST: Yes POLST Status: Full Code PD ED PE NORMAL - Vitals Vital signs reviewed: Yes - General General: Alert and oriented X 3, Well developed/nourished - HEENT HEENT: Atraumatic, EOMI, Ears normal, Pharynx benign - Neck Neck: No bony TTP, No adenopathy, Other (tender in posterior neck muscles, but still able to have ROM. 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, No motor deficit, No sensory deficit, Normal speech Eye Opening: Spontaneous Motor: Obeys Commands Verbal: Oriented GCS Score: 15 Results - Vitals Vitals: Vital Signs - 24 hr 05/24/19 05/24/19 09:29 11:33 Temperature 37.4 C Heart Rate 97 94 Respiratory 14 18 Rate Blood Pressure 115/80 122/79 O2 Saturation 93 97 Oxygen O2 Source Room air - Labs Labs: Laboratory Tests 05/24/19 05/24/19 05/24/19 09:34 11:42 11:42 WBC RBC Hgb Hct MCV MCH MCHC RDW Plt Count MPV Neut # (Auto) Lymph # (Auto) [place] # (Auto) Eos # (Auto) Baso # (Auto) Absolute Nucleated RBC Nucleated RBC % ESR 14 Sodium Potassium Chloride Carbon Dioxide Anion Gap BUN Creatinine Estimated GFR (MDRD) Glucose Lactic Acid 0.7 Calcium Total Bilirubin AST ALT Alkaline Phosphatase Total Protein Albumin Globulin Albumin/Globulin Ratio Lipase Influenza A (Rapid) Negative Influenza B (Rapid) Negative 05/24/19 05/24/19 11:42 11:42 WBC 5.0 RBC 4.66 Hgb 13.8 Hct 42.1 MCV 90.3 MCH 29.6 MCHC 32.8 RDW 12.2 Plt Count 181 MPV 10.9 H Neut # (Auto) 3.8 Lymph # (Auto) 0.6 L [place] # (Auto) 0.5 Eos # (Auto) 0.0 Baso # (Auto) 0.0 Absolute Nucleated RBC 0.00 Nucleated RBC % 0.0 ESR Sodium 138 Potassium 3.7 Chloride 102 Carbon Dioxide 27 Anion Gap 9.0 BUN 11 Creatinine 1.0 Estimated GFR (MDRD) 57 L Glucose 113 H Lactic Acid Calcium 9.3 Total Bilirubin 0.8 AST 18 ALT 26 Alkaline Phosphatase 61 Total Protein 7.4 Albumin 4.3 Globulin 3.1 Albumin/Globulin Ratio 1.4 Lipase 28 Influenza A (Rapid) Influenza B (Rapid) PD MEDICAL DECISION MAKING - ED course Complexity details: considered differential (The patient does have general flulike symptoms with headache. Onset was yesterday. She had previously had a cough but was improving some with that and did not have any purulent sputum per se. She did have some pain with breathing on the upper right back which she states is common for her due to previous scarring and pneumonia. There was concern for potential meningitic involvement. She was given IV fluids and Toradol and acetaminophen here and is feeling improved enough. Shared decision with the patient in discussion of lumbar puncture or not and the patient opts n ot to pursue a lumbar puncture at this time.), d/w patient Departure - Departure Disposition: 01 Home, Self Care Clinical Impression: Flu-like symptoms Headache Qualifiers: Headache type: unspecified Headache chronicity pattern: acute headache Intractability: not intractable Qualified Code(s): R51 - Headache Pneumonia Qualifiers: Pneumonia type: due to unspecified organism Laterality: right Lung location: upper lobe of lung Qualified Code(s): J18.9 - Pneumonia, unspecified organism Condition: Stable Record reviewed to determine appropriate education?: Yes Instructions: ED Pneumonia Adult, ED Viral Syndrome Follow-Up: Sharmin Santos ARNP, PEDIATRIC SPEECH THERAPIST-C [Primary Care Provider] - Prescriptions: dexAMETHasone [Decadron] 4 mg PO DAILY #5 tablet Doxycycline Monohydrate 100 mg PO BID #14 tablet Ondansetron Odt [Zofran] 4 mg TL Q6H PRN #10 tablet PRN Reason: Nausea / Vomiting Comments: Stay well-hydrated. Ondansetron if needed for nausea. Use Tylenol 650 mg 4 times a day for fevers and pains. Decadron steroid daily for the next several days to decrease inflammation. The chest x-ray showed a small patchiness in the right upper lung so consideration of a pneumonia. This still could be viral but we can treated with doxycycline in case. Recheck if not improved well over the next couple of days regarding headache and general wellness. Recheck if consistent symptoms or worsening. Discharge Date/Time: 05/24/19 13:36
[2019-05-24] MEDS ORDERED: ACETAMINOPHEN 1,000 MG/100 ML 100 ML IV STA (11:28)
[2019-05-24] MEDS ORDERED: SODIUM CHLORIDE 0.9% 1,000 ML IV ONE ×2 (11:28→11:29)
[2019-05-24] MEDS ORDERED: DEXAMETHASONE 10 MG/ML VIAL IVP STA (11:30)
[2019-05-24 11:34] VITALS: BP 122/79
[2019-05-24 11:59] LABS: BASOPHILS % (AUTO) 0.2 %; EOSINOPHILS % (AUTO) 0.6 %; HGB - HEMOGLOBIN 13.8 g/dL (12.0-16.0); LYMPHOCYTES # (AUTO) 0.6 10^3/uL (1.5-3.5); MEAN CORPUSCULAR HEMOGLOBIN 29.6 pg (27.0-31.0); MEAN CORPUSCULAR HGB CONC 32.8 g/dL (32.0-36.0); MEAN CORPUSCULAR VOLUME 90.3 fL (81.0-99.0); MEAN PLATELET VOLUME 10.9 fL (7.9-10.8); MONOCYTES # (AUTO) 0.5 10^3/uL (0.0-1.0); MONOCYTES % (AUTO) 10.4 %; NEUTROPHILS # (AUTO) 3.8 10^3/uL (1.5-6.6); NEUTROPHILS % (AUTO) 76.6 %; PLT - PLATELET COUNT 181 10^3/uL (130-450); RED BLOOD COUNT 4.66 10^6/uL (4.20-5.40); RED CELL DISTRIBUTION WIDTH 12.2 % (12.0-15.0)
--- NOTE | 2019-05-24 12:01 | XRAY Report ---
Reason: fevers/dyspnea, mild cough Procedure Date: 05/24/2019 Accession Number: [id number] / [id number] Procedure: XR - Chest 1 View X-Ray CPT Code: 98209 Final Report FULL RESULT: EXAM: CHEST RADIOGRAPHY EXAM DATE: 05/24/2019 11:39 AM. CLINICAL HISTORY: Fevers/dyspnea, mild cough. COMPARISON: CHEST 2 VIEW PA/LAT 03/25/2017 4:04 PM. TECHNIQUE: 1 view. FINDINGS: Lungs/Pleura: Subtle irregular opacities in the right upper lobe. No pleural effusion or pneumothorax. Mediastinum: Within exam limitations, the cardiomediastinal contour is normal. Other: None. IMPRESSION: Right upper lobe airspace disease. RADIA
[2019-05-24 12:14] LABS: ALBUMIN 4.3 g/dL (3.2-5.5); ALBUMIN/GLOBULIN RATIO 1.4 (1.0-2.2); BILIRUBIN,TOTAL 0.8 mg/dL (0.2-1.0); CALCIUM 9.3 mg/dL (8.5-10.3); TOTAL PROTEIN 7.4 g/dL (6.7-8.2)
[2019-05-24] MEDS ORDERED: KETOROLAC 30 MG/ML VIAL IVP STA (12:59)
[2019-05-24] MEDS ORDERED: DOXYCYCLINE 100 MG TABLET PO STA (13:16)
== END 2019-05-24 13:36 | disposition home or self-care (01) ==
LOC: ED 09:24
DX: R51 Headache (principal); R68.89 Other general symptoms and signs; E84.9 Cystic fibrosis, unspecified; J45.909 Unspecified asthma, uncomplicated; H54.7 Unspecified visual loss; Z79.51 Long term (current) use of inhaled steroids
CPT/HCPCS: 36415; 71045; 80053; 83605; 83690; 85025; 85651; 87275; 87276; 96365; 96366; 96375; 99284; A9270; J0131

== ENCOUNTER 2019-06-28 08:58 | Outpatient (CLI) | payer BC ==
--- NOTE | 2019-07-01 10:20 | Mammography Report ---
Reason: ROUTINE MAMMO Procedure Date: 06/28/2019 Accession Number: [id number] / [id number] Procedure: SHERI - Screening Mammo w/Woo CPT Code: Final Report FULL RESULT: EXAM: Screening Mammo w/Woo DATE: 06/28/2019 9:23 AM CLINICAL HISTORY: Screening encounter. History of benign right breast biopsy in 1993. TECHNIQUE: (B) - Bilateral CC, laterally exaggerated CC, MLO views were obtained. COMPARISON: 06/30/2018 through 06/30/2009. PARENCHYMAL PATTERN: (A) - The breast(s) demonstrate(s) scattered fibroglandular densities. FINDINGS: There are no suspicious masses, calcifications, or areas of distortion. IMPRESSION: Negative examination. BI-RADS category 1. RECOMMENDATION: (ANNUAL) - Recommend routine annual screening mammography. BI-RADS CATEGORY: (1) - Negative. STANDARD QUALIFYING STATEMENTS: 1. This examination was not reviewed with the aid of Computer-Aided Detection (CAD). 2. A negative or benign imaging report should not preclude biopsy if clinically suspicious findings are present. 3. Dense breasts may obscure an underlying neoplasm. 4. This examination was reviewed with the aid of 3D breast imaging (tomosynthesis).
== END 2019-06-28 08:59 | disposition home or self-care (01) ==
LOC: DI 08:58
DX: Z12.31 Encounter for screening mammogram for malignant neoplasm of breast (principal)
CPT/HCPCS: 77063; 77067

== ENCOUNTER 2020-01-05 13:10 | Emergency (ER) | payer OTHER, BC ==
[2020-01-05 13:24] VITALS: BP 148/91
--- NOTE | 2020-01-05 13:27 | ED Physician Documentation ---
History of Present Illness - Stated complaint Stated Complaint: RIGHT ANKLE INJURY - History obtained from History obtained from: Patient - History of Present Illness Timing: Today Pain level max: 8 Pain level now: 2 - Additonal information Additional information: Patient is a 59-year-old female who presents to the emergency department with right Achilles pain. Has a history of prior partial tendon rupture in the right Achilles. She states that she was at work today when she tripped, fell forward and now has pain in the right Achilles area. Worse with movement, better with rest. 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 HEENT: Tonsil/Adenoidectomy - Present Medications Home Medications: Ambulatory Orders Medication Instructions Recorded Confirmed Esomeprazole Magnesium [Nexium 2 tab PO BID 01/12/16 03/12/18 24Hr] Albuterol 2.5 mg INH Q4H PRN 03/25/17 03/12/18 Atorvastatin [Lipitor] 10 mg ORAL DAILY 01/05/20 01/05/20 EPINEPHrine [Epinephrine] 0.15 mg IJ 01/05/20 Fluticasone Propion/Salmeterol 01/05/20 [Wixela 100-50 Inhub] - Allergies Allergies/Adverse Reactions: Allergies Allergy/AdvReac Type Severity Reaction Status Date / Time Gadolinium-Containing Allergy Severe Anaphylaxis Verified 05/24/19 09:28 Contrast Medi Iodinated Contrast Media Allergy Severe Anaphylaxis Verified 05/24/19 09:28 morphine Allergy Mild Unknown Verified 05/24/19 09:28 ciprofloxacin [From Cipro] Allergy Unknown Verified 05/24/19 09:28 levofloxacin [From Levaquin] Allergy Unknown Verified 05/24/19 09:28 NSAIDS (Non-Steroidal Allergy Nausea Verified 05/24/19 09:45 Anti-Inflamma codeine [Codeine] AdvReac Intermediate Hallucinati Verified 05/24/19 09:28 ons latex AdvReac Itching Verified 05/24/19 09:28 mushrooms Allergy Severe Anaphylaxis Uncoded 05/24/19 09:28 walnuts Allergy Severe Anaphylaxis Uncoded 05/24/19 09:28 tape Allergy Intermediate Itching Uncoded 05/24/19 09:28 - Social History Does the pt smoke?: No Smoking Status: Never smoker Does the pt drink ETOH?: No Does the pt have substance abuse?: No - Immunizations Immunizations are current?: Yes - POLST Patient has POLST: Yes POLST Status: Full Code PD ED PE NORMAL - Vitals Vital signs reviewed: Yes - General General: Alert and oriented X 3, No acute distress - HEENT HEENT: Moist mucous membranes - Derm Derm: Warm and dry - Extremities Extremities: Other (Tender to palpation over the distal right Achilles. Mild swelling. Plantar flexion of the foot present with squeezing of the calf muscle. Neurovascular intact. No bony tenderness) - Neuro Neuro: Alert and oriented X 3 - Psych Psych: Normal mood, Normal affect Results - Vitals Vitals: Vital Signs - 24 hr 01/05/20 13:16 Temperature 36.7 C Heart Rate 87 Respiratory 18 Rate Blood Pressure 148/91 H O2 Saturation 99 Oxygen O2 Source Room air PD MEDICAL DECISION MAKING - ED course Complexity details: considered differential, d/w patient ED course: Patient with a right Achilles strain/partial rupture. Placed in a walking boot. Feels better. She is ambulating well. We will have her follow-up with orthopedics for further care. She already sees Dr. Acuna and orthopedics for her prior injuries. L&I paperwork filled out. Patient counseled regarding signs and symptoms for which I believe and urgent re-evaluation would be necessary. Patient with good understanding of and agreement to plan and is comfortable going home at this time This document was made in part using voice recognition software. While efforts are made to proofread this document, sound alike and grammatical errors may occur. Departure - Departure Disposition: 01 Home, Self Care Clinical Impression: Strain of Achilles tendon Qualifiers: Encounter type: initial encounter Laterality: right Qualified Code(s): S86.011A - Strain of right Achilles tendon, initial encounter Condition: Good Instructions: ED Tendon Rupture Achilles Follow-Up: Viral Charles MD [Primary Care Provider] - [facility] [Provider Group] - Within 1 week Comments: Wear the boot until released by orthopedics. Return if you worsen.
== END 2020-01-05 13:50 | disposition home or self-care (01) ==
LOC: ED 13:10
DX: S86.011A Strain of right Achilles tendon, initial encounter (principal); W01.0XXA Fall on same level from slipping, tripping and stumbling without subsequent striking against object, initial encounter; Y92.89 Other specified places as the place of occurrence of the external cause; Y99.0 Civilian activity done for income or pay
CPT/HCPCS: 99282

== ENCOUNTER 2020-02-02 01:59 | Outpatient (CLI) | payer OTHER, BC ==
--- NOTE | 2020-02-02 08:47 | XRAY Report ---
PROCEDURE: Tib/Fib RT INDICATIONS: ACHILLES TENDINITIS TECHNIQUE: 2 views of the tibia and fibula were acquired. COMPARISON: Correlation is made with the accompanying ankle plain films. FINDINGS: Bones: No fractures or dislocations. No suspicious bony lesions. 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 IMPRESSION: No significant plain film abnormality can be seen. Reviewed by: Gaston Marroquin MD on 02/02/2020 7:45 AM [facility] Approved by: Gaston Marroquin MD on 02/02/2020 7:45 AM [facility] Station ID: [id number]
--- NOTE | 2020-02-02 08:48 | XRAY Report ---
PROCEDURE: Ankle 3 View RT INDICATIONS: ACHILLES TENDINITIS TECHNIQUE: 3 views of the ankle were acquired. COMPARISON: Correlation is made with the accompanying images/fibula plain films. FINDINGS: Bones: No fractures or dislocations. Ankle mortise is normally aligned. No suspicious bony lesions . The talar dome demonstrates an unremarkable appearance. Soft tissues: In this patient with this given history, scrutiny is given to the Achilles tendon. The distal Achilles appears somewhat thickened. IMPRESSION: Apparent thickening of the distal Achilles tendon. If clinically appropriate, please con spindle setter a dedicated ankle MRI for further evaluation (assuming that there is no contraindication). Reviewed by: Gaston Marroquin MD on 02/02/2020 7:46 AM [facility] Approved by: Gaston Marroquin MD on 02/02/2020 7:46 AM [facility] Station ID: [id number]
== END 2020-02-02 02:00 | disposition home or self-care (01) ==
LOC: DI 01:59
PROVIDERS: ATTEND Physician Assistant
DX: M76.61 Achilles tendinitis, right leg (principal)

== ENCOUNTER 2020-03-10 07:20 | Outpatient (CLI) | payer OTHER, BC ==
--- NOTE | 2020-03-10 11:03 | MRI Report ---
PROCEDURE: Ankle RT W/O INDICATIONS: ACHILLES TENDINITIS TECHNIQUE: Noncontrast sagittal T1 spin echo and T2 fast spin echo with fat saturation, axial proton density fas t spin echo and T2 fast spin echo with fat saturation, coronal T1 spin echo and T2 fast spin echo wit h fat saturation through the ankle/hindfoot. COMPARISON: Ankle radiograph dated 02/02/2020. FINDINGS: Image quality: Excellent. Bones and joints: No bone marrow contusions or fractures. No hindfoot coalitions. No osteochondral injuries of the talar dome. No pathologic joint effusions. Medial structures: Small amount of fluid distending posterior tibialis tendon sheath is seen. The fle xor digitorum longus, and flexor hallucis longus tendons are intact. The posterior tibial neurovascu lar bundle appears normal within the tarsal tunnel, without extrinsic mass effect. The deep layer (a nterior and posterior tibiotalar ligaments) and superficial layer (tibionavicular, tibiospring, and t ibiocalcaneal ligaments) of the deltoid ligament appear normal. The spring ligament components (supe romedial calcaneonavicular, medioplantar oblique calcaneonavicular, and inferoplantar longitudinal li gaments) are intact. Lateral structures: The anterior talofibular, calcaneofibular, and posterior talofibular ligaments a ppear intact. More superiorly, the anterior and posterior tibiofibular ligaments appear normal, as i s the intermalleolar ligament. The tibiofibular syndesmosis is normal in width at 2 mm or less. The peroneus longus and brevis tendons demonstrate normal location and morphology. Adjacent bony perone al tubercle and retrotrochlear prominence are normal in size. The sinus tarsi demonstrates normal fa tty signal, without edema, fibrosis, or cyst formation. Visualized sinus tarsi components (cervical ligament, interosseous talocalcaneal ligament, roots of the inferior extensor retinaculum) appear nor mal. Anterior structures: The tibialis anterior, extensor hallucis longus, and extensor digitorum longus tendons appear intact. Posterior and plantar structures: Thickened mid to distal Achilles tendon is seen with mild intrasubs tance T2 hyperintense signal consistent with tendinitis. No full-thickness Achilles tendon rupture. M edial and lateral bands of the plantar fascia are of normal thickness. No abductor digiti quinti mus maryjane atrophy to suggest Gautam neuropathy. IMPRESSION: 1. Mid to distal Achilles tendinitis. Low-grade intrasubstance partial thickness tear cannot be exclu ded. No full-thickness Achilles tendon rupture. Plantar fascia is intact. 2. Very low-grade tenosynovitis involving posterior tibialis tendon. Rest of ankle tendons are intact . 3. Medial and lateral ankle ligaments are intact. 4. No marrow edema. No fracture or dislocation. No suspicious intraosseous lesion. Reviewed by: Esvin Espinal MD on 03/10/2020 10:02 AM [facility] Approved by: Esvin Espinal MD on 03/10/2020 10:02 AM [facility] Station ID: [id number]
== END 2020-03-10 07:21 | disposition home or self-care (01) ==
LOC: DI 07:20
PROVIDERS: ATTEND Physician Assistant
DX: M76.61 Achilles tendinitis, right leg (principal); M65.871 Other synovitis and tenosynovitis, right ankle and foot

== ENCOUNTER 2020-05-08 13:27 | Outpatient (CLI) | payer BC ==
--- NOTE | 2020-05-11 14:57 | XRAY Report ---
PROCEDURE: Chest 2 View X-Ray INDICATIONS: COUGH TECHNIQUE: 2 view(s) of the chest. COMPARISON: Chest x-ray 05/24/2019 FINDINGS: Surgical changes and devices: None. Lungs and pleura: In interval since the prior study, there is wedge-shaped opacification overlying th e right upper lobe. It was faintly present in 2020 and has become markedly more prominent. Mediastinum: Mediastinal contours are normal. Heart size is normal. Bones and chest wall: No suspicious bony abnormalities. Soft tissues appear unremarkable. IMPRESSION: Marked interval progression of wedge-shaped opacification overlying the right upper lobe . This could represent airspace disease such as pneumonia. However, mass lesion of other etiology can not be excluded. Short interval imaging follow-up after appropriate therapy in 2-4 weeks is recommend ed. However, if symptoms are not consistent with infection or inflammation, CT chest is recommended f or further evaluation. Reviewed by: Rhina Carson MD on 05/11/2020 2:56 PM PST Approved by: Rhina Carson MD on 05/11/2020 2:56 PM PST Station ID: [id number]
== END 2020-05-08 13:28 | disposition home or self-care (01) ==
LOC: DI 13:27
PROVIDERS: ATTEND Physician Assistant Medical
DX: R05 Cough (principal)

== ENCOUNTER 2020-05-12 11:30 | Outpatient (CLI) | payer BC | END 2020-05-12 23:59 | disposition home or self-care (01) | LOC: LAB.R 11:30 | PROVIDERS: ATTEND Family Medicine | DX: R05 Cough (principal); Z20.822 Contact with and (suspected) exposure to COVID-19 | CPT/HCPCS: 87275; 87276 ==

== ENCOUNTER 2020-05-26 06:48 | Outpatient (CLI) | payer BC ==
[2020-05-26] MEDS ORDERED: IOVERSOL 320 100 ML VIAL IVP ONE ×2 (07:04→08:27)
--- NOTE | 2020-05-26 13:08 | CT Report ---
PROCEDURE: CHEST W INDICATIONS: ABD CHEST RADIOGRAPH, PNEUMONIA, COUGH CONTRAST: IV CONTRAST: Optiray 320 ml: 80 PO CONTRAST: *NO PO CONTRAST TECHNIQUE: After the administration of intravenous contrast, 5 mm thick sections acquired from the pulmonary api cathryn to the posterior costophrenic angles. 7 mm thick coronal MIP reformats were acquired. For radia tion dose reduction, the following was used: automated exposure control, adjustment of mA and/or kV according to patient size. COMPARISON: Chest x-ray 2 view, 05/08/2020. CT chest without contrast, 06/13/2015. FINDINGS: Image quality: Excellent. Lungs and pleura: There are interstitial and airspace opacities in right upper lobe and right middle lobe with associated architectural distortion and bronchiectasis. Multiple nodules are seen in the ri ght upper lobe, measuring up to 11 mm. Subpleural opacities in the right upper lobe and right middle lobe are consistent with atelectasis. There is bronchial wall thickening and irregularity involving the right upper lobe bronchus and bronchus intermedius. Compared with the last chest CT dated 016, space opacities are increased, and right upper lobe nodules are new. Mild patchy groundglass inf iltrate is present in the left lower lobe. No pleural effusions or pneumothorax. Mediastinum: Heart size is normal. No pericardial effusion. Mildly enlarged mediastinal lymph nodes measure up to 9 mm. Thoracic aorta and central pulmonary arteries are normal in size. Esophagus is normal in caliber. Small hiatal hernia. Bones and chest wall: No suspicious bony lesions. No vertebral body compression fractures. No axil cathy or supraclavicular adenopathy by size criteria. Thyroid gland is normal.. Abdomen: Visualized upper abdominal solid organs appear normal. Upper abdominal bowel loops are nor mal in caliber. IMPRESSION: 1. There are right upper lobe and right middle lobe interstitial and airspace opacities with associat ed architectural distortion and bronchiectasis. There are multiple pulmonary nodules in the right upp er lobe. The CT findings are most compatible with a chronic infectious or inflammatory process, such as granulomatous infections. Recommend clinical correlation. Since the nodules are new since last CT, a short-term follow-up CT is recommended in 3 months. 2. Mild groundglass infiltrate in the left lower lobe could represent mild atypical pneumonia. 3. There is bronchial wall thickening and irregularity noted in the right upper lobe bronchus and bro nchus intermedius. If clinically indicated, bronchoscopy may be obtained for further evaluation. 4. Slightly prominent centimeter mediastinal lymph nodes are most likely reactive. Reviewed by: Bianca Cole MD on 05/26/2020 1:06 PM PST Approved by: Bianca Cole MD on 05/26/2020 1:06 PM PST Station ID: [id number]
== END 2020-05-26 06:49 | disposition home or self-care (01) ==
LOC: DI 06:48
PROVIDERS: ATTEND Family Medicine
DX: J18.9 Pneumonia, unspecified organism (principal); R05 Cough; R91.8 Other nonspecific abnormal finding of lung field
CPT/HCPCS: 71260; Q9967

== ENCOUNTER 2020-10-03 06:55 | Outpatient (CLI) | payer BC ==
[2020-10-03 07:53] LABS: BASOPHILS % (AUTO) 0.6 %; EOSINOPHILS # (AUTO) 0.7 10^3/uL (0.0-0.7); EOSINOPHILS % (AUTO) 10.9 %; HCT - HEMATOCRIT 42.4 % (37.0-47.0); HGB - HEMOGLOBIN 13.7 g/dL (12.0-16.0); LYMPHOCYTES # (AUTO) 2.6 10^3/uL (1.5-3.5); LYMPHOCYTES % (AUTO) 38.7 %; MEAN CORPUSCULAR HEMOGLOBIN 30.2 pg (27.0-31.0); MEAN CORPUSCULAR HGB CONC 32.3 g/dL (32.0-36.0); MEAN CORPUSCULAR VOLUME 93.6 fL (81.0-99.0); MEAN PLATELET VOLUME 11.4 fL (7.9-10.8); MONOCYTES # (AUTO) 0.5 10^3/uL (0.0-1.0); MONOCYTES % (AUTO) 7.9 %; NEUTROPHILS # (AUTO) 2.8 10^3/uL (1.5-6.6); NEUTROPHILS % (AUTO) 41.8 %; PLT - PLATELET COUNT 184 10^3/uL (130-450); RED BLOOD COUNT 4.53 10^6/uL (4.20-5.40); RED CELL DISTRIBUTION WIDTH 12.1 % (12.0-15.0); WHITE BLOOD COUNT 6.7 x10^3/uL (4.8-10.8)
[2020-10-03 08:12] LABS: ALBUMIN 4.3 g/dL (3.2-5.5); ALBUMIN/GLOBULIN RATIO 1.7 (1.0-2.2); ALKALINE PHOSPHATASE 72 IU/L (42-121); ALT ALANINE AMINOTRANSFERASE 22 IU/L (10-60); AST ASPARTATE AMINOTRANSFERASE 18 IU/L (10-42); BILIRUBIN,TOTAL 1.1 mg/dL (0.2-1.0); BUN - BLOOD UREA NITROGEN 14 mg/dL (6-20); CALCIUM 9.1 mg/dL (8.5-10.3); CARBON DIOXIDE - CO2 28 mmol/L (21-32); CHLORIDE 103 mmol/L (101-111); CHOL/HDL RATIO 5.3 (<4.4); CHOLESTEROL 233 mg/dL; CREATININE 0.8 mg/dL (0.4-1.0); GFR - MDRD 73 (>89); GLUCOSE 110 mg/dL (70-100); HDL CHOLESTEROL 44 mg/dL; LDL CHOLESTEROL,CALCULATED 144 mg/dL; LDL/HDL RATIO 3.3 (<4.4); POTASSIUM 3.7 mmol/L (3.5-5.0); SODIUM 139 mmol/L (135-145); TOTAL PROTEIN 6.9 g/dL (6.7-8.2); TRIGLYCERIDES 225 mg/dL; VLDL CHOLESTEROL 45 mg/dL
--- NOTE | 2020-10-03 13:16 | XRAY Report ---
PROCEDURE: Knee 2 View RT INDICATIONS: RIGHT KNEE JOINT PAIN TECHNIQUE: 2 views of the right knee(s) were acquired. COMPARISON: None. FINDINGS: Bones: No fractures or dislocations. Early degenerative change. No suspicious bony lesions. Soft tissues: Small joint effusion. No suspicious soft tissue calcifications. Medial collateral lig ament calcifications are consistent with remote trauma. IMPRESSION: Mild degenerative change. No evidence acute bony abnormality of the right knee. If clinical suspicion and/or symptoms persist, further assessment with repeat plain films or advanced imaging (e.g., CT, MRI, or bone scan) may be helpful for further assessment. Reviewed by: Alexis Jenkins MD on 10/03/2020 12:15 PM [facility] Approved by: Alexis Jenkins MD on 10/03/2020 12:15 PM [facility] Station ID: [id number]
== END 2020-10-03 06:56 | disposition home or self-care (01) ==
LOC: LAB 06:55
PROVIDERS: ATTEND Internal Medicine
DX: M25.561 Pain in right knee (principal); Z79.899 Other long term (current) drug therapy; Z13.220 Encounter for screening for lipoid disorders; M17.11 Unilateral primary osteoarthritis, right knee
CPT/HCPCS: 36415; 80053; 80061; 83721; 85025

== ENCOUNTER 2020-11-10 07:49 | Outpatient (CLI) | payer BC ==
--- NOTE | 2020-11-11 14:40 | Mammography Report ---
BILATERAL DIGITAL SCREENING MAMMOGRAM 3D/2D WITH EXAGGERATED CC: 11/10/2020 CLINICAL: Routine screening. Comparison is made to exams dated: 06/28/2019 mammogram, 06/30/2018 mammogram, 06/06/2017 mammogram, and 06/03/2016 mammogram - [facility]. The tissue of both breasts is heterogeneously de nse. This may lower the sensitivity of mammography. No significant masses, calcifications, or other findings are seen in either breast. There has been no significant interval change. IMPRESSION: NEGATIVE There is no mammographic evidence of malignancy. A 1 year screening mammogram is recommended. This exam was interpreted at Station ID: [id number]. NOTE: For mammograms, a report in lay terms will be sent to the patient. Approximately 15% of breast malignancies will not be visualized mammographically. In the management of a palpable breast mass, a negative mammogram must not discourage biopsy of a clinically suspicious lesion. Electronically Signed By: Darrick urias/penrad:11/10/2020 08:39:24 ACR BI-RADS Category 1: Negative 3341F PARENCHYMAL PATTERN: (D) - The breast(s) demonstrate(s) heterogeneously dense fibroglandular lawanda luis. BI-RADS CATEGORY: (1) - 1 RECOMMENDATION: (ANNUAL) - Recommend routine annual screening mammography. [id number] 1 year screening LATERALITY: (B)
== END 2020-11-10 07:50 | disposition home or self-care (01) ==
LOC: DI.S 07:49
PROVIDERS: ATTEND Internal Medicine
DX: Z12.31 Encounter for screening mammogram for malignant neoplasm of breast (principal)

== ENCOUNTER 2020-12-17 19:37 | Emergency (ER) | payer BC ==
[2020-12-17] MEDS ORDERED: predniSONE 20 MG TABLET PO STA (20:18)
[2020-12-17] MEDS ORDERED: IPRATROPIUM/ALBUTEROL 3 ML NEB INH STA (20:18)
--- NOTE | 2020-12-17 20:35 | XRAY Report ---
PROCEDURE: Chest 2 View X-Ray INDICATIONS: SOA TECHNIQUE: 2 view(s) of the chest. COMPARISON: None. FINDINGS: Surgical changes and devices: None. Lungs and pleura: No pleural effusions or pneumothorax. Bronchial wall thickening and nodular patter n predominantly involving the right upper lobe. Alveolar opacity involving the right upper lobe along the major fissure as seen on the lateral view. Mediastinum: Mediastinal contours are normal. Heart size is normal. Bones and chest wall: No suspicious bony abnormalities. Mild scoliosis. Soft tissues appear unremar kable. IMPRESSION: Findings suggestive of bronchitis and bronchopneumonia predominantly involving the right upper lobe. Reviewed by: Earline Lowry MD on 12/17/2020 8:33 PM PDT Approved by: Earline Lowry MD on 12/17/2020 8:33 PM PDT Station ID: [id number]
[2020-12-17] MEDS ORDERED: AZITHROMYCIN 250 MG TABLET PO STA (20:36)
--- NOTE | 2020-12-17 20:37 | ED Physician Documentation ---
PD HPI URI - Stated complaint Stated Complaint: SOA/HEADACHE - Chief complaint Chief Complaint: Resp - History obtained from History obtained from: Patient - History of Present Illness Timing - onset: Yesterday Timing duration: Days (2) Timing details: Gradual onset Associated symptoms: Productive cough, Chest pain (R upper chest, normal for her when she has pneumonia). No: Fever, Chills Contributing factors: Other (CF) Improves by: Rest Worsened by: Activity Similar symptoms before: Diagnosis (pneumonia) Review of Systems Constitutional: denies: Fever Throat: denies: Sore throat Respiratory: reports: Dyspnea, Cough GI: denies: Vomiting, Diarrhea Skin: denies: Rash Musculoskeletal: denies: Neck pain, Back pain Neurologic: denies: Headache PD PAST MEDICAL HISTORY - Past Medical History Past Medical History: Yes Cardiovascular: High cholesterol Respiratory: Asthma, Cystic fibrosis, Other Endocrine/Autoimmune: None GI: GERD, Colon polyps, Diverticulitis, Other : None HEENT: Chronic vision loss Psych: None Musculoskeletal: None Derm: None - Past Surgical History Past Surgical History: Yes General: Appendectomy, Colonoscopy, EGD Ortho: 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, 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 HEENT: Tonsil/Adenoidectomy - Present Medications Home Medications: Ambulatory Orders Medication Instructions Recorded Confirmed Esomeprazole Magnesium [Nexium 2 tab PO BID 01/12/16 12/17/20 24Hr] Albuterol 2.5 mg INH Q4H PRN 03/25/17 12/17/20 Atorvastatin [Lipitor] 20 mg ORAL DAILY 01/05/20 12/17/20 EPINEPHrine [Epinephrine] 0.15 mg IJ 01/05/20 Albuterol Sulf [Ventolin Hfa 1 - 2 puffs INH Q4HR PRN 12/17/20 12/17/20 Inhaler] Azithromycin [Zithromax] 250 mg PO DAILY #4 tablet 12/17/20 Cefdinir 300 mg PO BID #20 cap 12/17/20 Fluticasone Propion/Salmeterol 1 puffs INH BID 12/17/20 12/17/20 [Wixela 500-50 Inhub] predniSONE [Deltasone] 10 mg PO [id number] #42 tab 12/17/20 - Allergies Allergies/Adverse Reactions: Allergies Allergy/AdvReac Type Severity Reaction Status Date / Time Gadolinium-Containing Allergy Severe Anaphylaxis Verified 12/17/20 19:45 Contrast Medi Iodinated Contrast Media Allergy Severe Anaphylaxis Verified 12/17/20 19:45 morphine Allergy Mild Unknown Verified 12/17/20 19:45 ciprofloxacin [From Cipro] Allergy Unknown Verified 12/17/20 19:45 levofloxacin [From Levaquin] Allergy Unknown Verified 12/17/20 19:45 NSAIDS (Non-Steroidal Allergy Nausea Verified 12/17/20 19:45 Anti-Inflamma codeine [Codeine] AdvReac Intermediate Hallucinati Verified 12/17/20 19:45 ons latex AdvReac Itching Verified 12/17/20 19:45 mushrooms Allergy Severe Anaphylaxis Uncoded 12/17/20 19:45 walnuts Allergy Severe Anaphylaxis Uncoded 12/17/20 19:45 tape Allergy Intermediate Itching Uncoded 12/17/20 19:45 - Social History Does the pt smoke?: No Smoking Status: Never smoker Does the pt drink ETOH?: No Does the pt have substance abuse?: No - Immunizations Immunizations are current?: Yes - POLST Patient has POLST: Yes POLST Status: Full Code PD ED PE NORMAL - Vitals Vital signs reviewed: Yes - General General: Alert and oriented X 3, No acute distress, Well developed/nourished - HEENT HEENT: PERRL, Moist mucous membranes - Neck Neck: Supple, no meningeal sign - Cardiac Cardiac: RRR, Strong equal pulses - Respiratory Respiratory: No respiratory distress, Other (Minimal wheeze bilaterally) - Abdomen Abdomen: Soft, Non tender, Non distended - Derm Derm: Warm and dry - Neuro Neuro: Alert and oriented X 3 - Psych Psych: Normal mood, Normal affect Results - Vitals Vitals: Vital Signs - 24 hr 12/17/20 12/17/20 12/17/20 19:40 20:35 21:40 Temperature 36.2 C L 36.5 C Heart Rate 98 98 90 Respiratory 16 16 16 Rate Blood Pressure 168/86 H 140/80 H O2 Saturation 99 100 Oxygen O2 Source Room air - Labs Labs: Laboratory Tests 12/17/20 20:29 Nasal Adenovirus (PCR) NOT DETECTED Nasal B. parapertussis DNA (PCR) NOT DETECTED Nasal Coronavir 229E PCR NOT DETECTED Nasal Coronavir HKU1 PCR NOT DETECTED Nasal Coronavir NL63 PCR NOT DETECTED Nasal Coronavir OC43 PCR NOT DETECTED Nasal Enterovir/Rhinovir PCR NOT DETECTED Nasal Influenza B PCR NOT DETECTED Nasal Influenza A PCR NOT DETECTED Nasal Parainfluen 1 PCR NOT DETECTED Nasal Parainfluen 2 PCR NOT DETECTED Nasal Parainfluen 3 PCR NOT DETECTED Nasal Parainfluen 4 PCR NOT DETECTED Nasal RSV (PCR) NOT DETECTED Nasal B.pertussis DNA PCR NOT DETECTED Nasal C.pneumoniae (PCR) NOT DETECTED Prasanth Human Metapneumo PCR NOT DETECTED Nasal M.pneumoniae (PCR) NOT DETECTED Nasal SARS-CoV-2 (PCR) NOT DETECTED - Rads (name of study) Chest x-ray Radiology: Final report received, EMP read contemporaneously, See rad report (IMPRESSION: Findings suggestive of bronchitis and bronchopneumonia predominantly involving the right upper lobe. ) PD MEDICAL DECISION MAKING - ED course Complexity details: reviewed results, re-evaluated patient, considered differential, d/w patient ED course: Patient with likely bronchopneumonia right upper lung. Will place on azithromycin and cefdinir. We will also place on a steroid taper. No respiratory distress or hypoxia. No indication for further imaging at this time. Patient is well-appearing, nontoxic. Afebrile. Patient counseled regarding signs and symptoms for which I believe and urgent re-evaluation would be necessary. Patient with good understanding of and agreement to plan and is comfortable going home at this time This document was made in part using voice recognition software. While efforts are made to proofread this document, sound alike and grammatical errors may occur. Departure - Departure Disposition: 01 Home, Self Care Clinical Impression: Bronchopneumonia Condition: Good Instructions: ED Pneumonia Adult Follow-Up: Timo Mckeon MD [Primary Care Provider] - As Needed Prescriptions: Cefdinir 300 mg PO BID #20 cap predniSONE [Deltasone] 10 mg PO [id number] #42 tab Azithromycin [Zithromax] 250 mg PO DAILY #4 tablet Comments: Your prescriptions were sent to [facility] in [facility]. Please follow-up with your doctor as needed for further care. Return if you worsen. Discharge Date/Time: 12/17/20 21:40
[2020-12-17 21:42] VITALS: BP 140/80
[2020-12-17 21:50] LABS: B. PARAPERTUSSIS- RESP PCR PAN NOT DETECTED; B. PERTUSSIS- RESP PCR PANEL NOT DETECTED; C. PNEUMONIAE- RESP PCR PANEL NOT DETECTED; CORONAVIRUS 229E-RESP PCR NOT DETECTED; CORONAVIRUS HKU1-RESP PCR NOT DETECTED; CORONAVIRUS NL63-RESP PCR NOT DETECTED; CORONAVIRUS OC43-RESP PCR NOT DETECTED; HUMAN METAPNEUMOVIRUS NOT DETECTED; INFLUENZA A- RESP PCR PANEL NOT DETECTED; INFLUENZA B - RESP PCR PANEL NOT DETECTED; M. PNEUMONIAE- RESP PCR PANEL NOT DETECTED; PARAINFLUENZA VIRUS 1 NOT DETECTED; PARAINFLUENZA VIRUS 2 NOT DETECTED; PARAINFLUENZA VIRUS 3 NOT DETECTED; PARAINFLUENZA VIRUS 4 NOT DETECTED; RHINOVIRUS/ENTEROVIRUS NOT DETECTED; RSV- RESP PCR PANEL NOT DETECTED; SARS-CoV-2 -RESP PCR PANEL NOT DETECTED
== END 2020-12-17 21:40 | disposition home or self-care (01) ==
LOC: ED 19:37
DX: J18.0 Bronchopneumonia, unspecified organism (principal); Z20.822 Contact with and (suspected) exposure to COVID-19
CPT/HCPCS: 0202U; 71046; 94640; 99283; 99284; A9270; J7512

== ENCOUNTER 2021-09-24 14:59 | Emergency (ER) | payer BC ==
--- OUTSIDE RECORDS SUMMARY | 2021-09-24 15:32 | EXTERNAL MEDICAL SUMMARY RPT | Continuity of Care Document ---
:1960 Author Organization [facility] Address [address] [place] [address] Phone Allergies No information. Encounters No information. Functional Status No information. Immunizations No information. Medications No information. Problems No information. Procedures No information. Results/Labs test date author facility value unit interpret ation Result panel 1 (unknown) (no date) (unknown) (unknown) See Separate (units ( unknown) Report unknown) Result panel 2 (unknown) (no date) (unknown) (unknown) (no value) (units 825 1-1 unknown) (unknown) (no date) (unknown) (unknown) >10.00 IU/mL 55400 -8 (unknown) (no date) (unknown) (unknown) 0.10 IU/mL 46743 -9 (unknown) (no date) (unknown) (unknown) 0.12 IU/mL 33892 -7 (unknown) (no date) (unknown) (unknown) 0.14 IU/mL 94491 -8 (unknown) (no date) (unknown) (unknown) Negative (units 21859 -6 unknown) Result panel 3 (unknown) (no date) (unknown) (unknown) >10.00 IU/mL (unkn own) (unknown) (no date) (unknown) (unknown) 0.10 IU/mL (unkn own) (unknown) (no date) (unknown) (unknown) 0.12 IU/mL (unkn own) (unknown) (no date) (unknown) (unknown) 0.14 IU/mL (unkn own) (unknown) (no date) (unknown) (unknown) Comment (units (unkn own) unknown) (unknown) (no date) (unknown) (unknown) Negative (units (unkn own) unknown) Social History No information. Vital Signs No information.
[2021-09-24 15:51] LABS: BASOPHILS # (AUTO) 0.1 10^3/uL (0.0-0.1); BASOPHILS % (AUTO) 0.9 %; EOSINOPHILS # (AUTO) 0.4 10^3/uL (0.0-0.7); EOSINOPHILS % (AUTO) 6.7 %; HCT - HEMATOCRIT 42.1 % (37.0-47.0); HGB - HEMOGLOBIN 13.7 g/dL (12.0-16.0); LYMPHOCYTES # (AUTO) 2.3 10^3/uL (1.5-3.5); LYMPHOCYTES % (AUTO) 40.1 %; MEAN CORPUSCULAR HEMOGLOBIN 30.4 pg (27.0-31.0); MEAN CORPUSCULAR HGB CONC 32.5 g/dL (32.0-36.0); MEAN CORPUSCULAR VOLUME 93.3 fL (81.0-99.0); MEAN PLATELET VOLUME 11.4 fL (7.9-10.8); MONOCYTES # (AUTO) 0.5 10^3/uL (0.0-1.0); MONOCYTES % (AUTO) 8.6 %; NEUTROPHILS # (AUTO) 2.5 10^3/uL (1.5-6.6); NEUTROPHILS % (AUTO) 43.5 %; PLT - PLATELET COUNT 173 10^3/uL (130-450); RED BLOOD COUNT 4.51 10^6/uL (4.20-5.40); RED CELL DISTRIBUTION WIDTH 12.1 % (12.0-15.0); WHITE BLOOD COUNT 5.7 x10^3/uL (4.8-10.8)
[2021-09-24 16:05] LABS: ALBUMIN 4.5 g/dL (3.2-5.5); ALBUMIN/GLOBULIN RATIO 1.7 (1.0-2.2); BILIRUBIN,TOTAL 0.6 mg/dL (0.2-1.0); CALCIUM 9.9 mg/dL (8.5-10.3); CREATININE 0.8 mg/dL (0.4-1.0); TOTAL PROTEIN 7.2 g/dL (6.7-8.2)
[2021-09-24 16:14] LABS: BILIRUBIN,URINE NEGATIVE (NEGATIVE); GLUCOSE, URINE (UA) NEGATIVE (NEGATIVE); KETONES,URINE (UA) NEGATIVE (NEGATIVE); LEUKOCYTE ESTERASE, URINE NEGATIVE (NEGATIVE); NITRITE,URINE NEGATIVE (NEGATIVE); OCCULT BLOOD,URINE SMALL (NEGATIVE); PH,URINE 5.5 PH (5.0-7.5); PROTEIN,URINE NEGATIVE (NEGATIVE); UROBILINOGEN,URINE 0.2 (NORMAL) E.U./dL (NORMAL)
[2021-09-24 16:19] LABS: CLARITY,URINE CLEAR (CLEAR)
[2021-09-24] MEDS ORDERED: KETOROLAC 30 MG/ML VIAL IM STA (16:23)
--- NOTE | 2021-09-24 16:24 | ED Physician Documentation ---
History of Present Illness - Stated complaint Stated Complaint: ELEVATED BLOOD PRESSURE HEADACHE - Chief complaint Chief Complaint: Cardiac - Additonal information Additional information: 61-year-old female presents emergency department for evaluation of headache and elevated blood pressure. She states she has no history of hypertension. Non- smoker. She is very stressed and burned out with her current job. Enough so that she has given notice. Today she has had a profound headache that did not resolve with Tylenol. At work she asked her colleagues to check her blood pressure and it was about 155 over almost 100. And she is in the process of transitioning to a new provider and will not see Dr. Walter until mid October. She is afraid that the elevated blood pressure will be a cause of a stroke. She has no focal neurodeficits. Review of Systems Constitutional: denies: Fever, Chills Eyes: reports: Reviewed and negative Ears: reports: Reviewed and negative Nose: reports: Reviewed and negative Throat: reports: Reviewed and negative Cardiac: denies: Chest pain / pressure, Palpitations Respiratory: reports: Reviewed and negative GI: denies: Abdominal Pain, Abdominal Swelling : reports: Reviewed and negative Skin: reports: Reviewed and negative Musculoskeletal: reports: Reviewed and negative Neurologic: reports: Headache PD PAST MEDICAL HISTORY - Past Medical History Cardiovascular: High cholesterol Respiratory: Asthma, Cystic fibrosis, Other Endocrine/Autoimmune: None GI: GERD, Colon polyps, Diverticulitis, Other : None HEENT: Chronic vision loss Psych: None Musculoskeletal: None Derm: None - Past Surgical History Past Surgical History: Yes General: Appendectomy, Colonoscopy, EGD 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, 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 HEENT: Tonsil/Adenoidectomy - Present Medications Home Medications: Ambulatory Orders Medication Instructions Recorded Confirmed Esomeprazole Magnesium [Nexium 2 tab PO BID 01/12/16 12/17/20 24Hr] Albuterol 2.5 mg INH Q4H PRN 03/25/17 12/17/20 Atorvastatin [Lipitor] 20 mg ORAL DAILY 01/05/20 12/17/20 EPINEPHrine [Epinephrine] 0.15 mg IJ 01/05/20 Albuterol Sulf [Ventolin Hfa 1 - 2 puffs INH Q4HR PRN 12/17/20 12/17/20 Inhaler] Azithromycin [Zithromax] 250 mg PO DAILY #4 tablet 12/17/20 Cefdinir 300 mg PO BID #20 cap 12/17/20 Fluticasone Propion/Salmeterol 1 puffs INH BID 12/17/20 12/17/20 [Wixela 500-50 Inhub] predniSONE [Deltasone] 10 mg PO [id number] #42 tab 12/17/20 - Allergies Allergies/Adverse Reactions: Allergies Allergy/AdvReac Type Severity Reaction Status Date / Time Gadolinium-Containing Allergy Severe Anaphylaxis Verified 09/24/21 15:18 Contrast Medi Iodinated Contrast Media Allergy Severe Anaphylaxis Verified 09/24/21 15:18 mushroom Allergy Severe Anaphylaxis Verified 09/24/21 15:18 walnut Allergy Severe Anaphylaxis Verified 09/24/21 15:18 morphine Allergy Mild Unknown Verified 09/24/21 15:18 ciprofloxacin [From Cipro] Allergy Unknown Verified 09/24/21 15:18 levofloxacin [From Levaquin] Allergy Unknown Verified 09/24/21 15:18 NSAIDS (Non-Steroidal Allergy Nausea Verified 09/24/21 15:18 Anti-Inflamma adhesive tape AdvReac Severe Itching Verified 09/24/21 15:18 codeine [Codeine] AdvReac Intermediate Hallucinati Verified 09/24/21 15:18 ons latex AdvReac Itching Verified 12/17/20 19:45 - Social History Does the pt smoke?: No Smoking Status: Never smoker Does the pt drink ETOH?: No Does the pt have substance abuse?: No - Immunizations Immunizations are current?: Yes - POLST Patient has POLST: Yes POLST Status: Full Code PD ED PE NORMAL - General General: Alert and oriented X 3, No acute distress, Well developed/nourished - HEENT HEENT: Atraumatic, Ears normal - Neck Neck: Supple, no meningeal sign, No adenopathy - Cardiac Cardiac: RRR, No murmur - Respiratory Respiratory: No respiratory distress, Clear bilaterally - Abdomen Abdomen: Normal bowel sounds, Soft, Non tender - Extremities Extremities: No deformity, No tenderness to palpate, Normal ROM s pain - Neuro Neuro: Alert and oriented X 3, wet cotton feeder 2-12 intact, No motor deficit Eye Opening: Spontaneous Motor: Obeys Commands Verbal: Oriented GCS Score: 15 Results - Vitals Vitals: Vital Signs - 24 hr 09/24/21 09/24/21 15:12 16:20 Temperature 36.3 C L Heart Rate 77 67 Respiratory 18 18 Rate Blood Pressure 155/99 H 159/75 H O2 Saturation 97 98 Oxygen O2 Source Room air - EKG (time done) 1535 Rate: Rate (enter#) (71) Rhythm: NSR [place]: Normal Intervals: Normal CT QRS: Normal Ischemia: Normal ST segments Compare to prior EKG: Old EKG unavailable Computer interpretation: Agree with computer - Labs Labs: Laboratory Tests 09/24/21 09/24/21 09/24/21 15:44 15:44 15:44 WBC 5.7 RBC 4.51 Hgb 13.7 Hct 42.1 MCV 93.3 MCH 30.4 MCHC 32.5 RDW 12.1 Plt Count 173 MPV 11.4 H Neut # (Auto) 2.5 Lymph # (Auto) 2.3 [place] # (Auto) 0.5 Eos # (Auto) 0.4 Baso # (Auto) 0.1 Absolute Nucleated RBC 0.00 Nucleated RBC % 0.0 Sodium 138 Potassium 4.0 Chloride 103 Carbon Dioxide 27 Anion Gap 8.0 BUN 13 Creatinine 0.8 Estimated GFR (MDRD) 73 L Glucose 89 Calcium 9.9 Total Bilirubin 0.6 AST 16 ALT 16 Alkaline Phosphatase 66 Troponin I High Sens 2.5 Total Protein 7.2 Albumin 4.5 Globulin 2.7 Albumin/Globulin Ratio 1.7 Lipase 31 Urine Color Urine Clarity Urine pH Ur Specific [place] Urine Protein Urine Glucose (UA) Urine Ketones Urine Occult Blood Urine Nitrite Urine Bilirubin Urine Urobilinogen Ur Leukocyte Esterase Urine RBC Urine WBC Ur Squamous Epith Cells Urine Bacteria Urine Mucus Ur Microscopic Review Urine Culture Comments 09/24/21 15:54 WBC RBC Hgb Hct MCV MCH MCHC RDW Plt Count MPV Neut # (Auto) Lymph # (Auto) [place] # (Auto) Eos # (Auto) Baso # (Auto) Absolute Nucleated RBC Nucleated RBC % Sodium Potassium Chloride Carbon Dioxide Anion Gap BUN Creatinine Estimated GFR (MDRD) Glucose Calcium Total Bilirubin AST ALT Alkaline Phosphatase Troponin I High Sens Total Protein Albumin Globulin Albumin/Globulin Ratio Lipase Urine Color YELLOW Urine Clarity CLEAR Urine pH 5.5 Ur Specific [place] 1.020 Urine Protein NEGATIVE Urine Glucose (UA) NEGATIVE Urine Ketones NEGATIVE Urine Occult Blood SMALL H Urine Nitrite NEGATIVE Urine Bilirubin NEGATIVE Urine Urobilinogen 0.2 (NORMAL) Ur Leukocyte Esterase NEGATIVE Urine RBC 0-5 Urine WBC 0-3 Ur Squamous Epith Cells FEW Squamous Urine Bacteria Few Urine Mucus Marked Strands Ur Microscopic Review INDICATED Urine Culture Comments NOT INDICATED - Rads (name of study) cxr Radiology: Final report received (Costophrenic angle blunting suggestive of trace effusions versus scarring) PD MEDICAL DECISION MAKING - ED course Complexity details: considered differential, d/w patient ED course: 61-year-old female presents emergency department for concerns of headache and elevated blood pressure. 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 Today she has had a headache at work and checked her blood pressure and found that it was approximately 160/100. This was an exorbitant value for her thus she checks into the ER. She denies chest pain or shortness of air. Screening EKG is sinus rhythm without any ischemic changes. Her screening CBC electrolytes and high-sensitivity troponin are negative. Chest x-ray is without acute focal findings. She was administered a dose of Toradol here in the emergency department with good resolution of her headache. Given lack of focal deficits or red flag wa rnings advanced imaging was deferred I did spend some time at the bedside discussing this ED visit with the patient. She is scheduled to establish with a primary care provider in a few weeks. At this time though she does have some mildly elevated blood pressures I do not feel that she would benefit from initiation of antihypertensives given current a set guidelines as well as the patient's significant mount of anxiety and stress. I am encouraging her check her blood pressures at home and keep a journal. If they remain elevated at home at that point consideration of antihypertensives can be given. Departure - Departure Disposition: 01 Home, Self Care Clinical Impression: Elevated blood pressure reading Headache Qualifiers: Headache type: tension-type Headache chronicity pattern: acute headache Intractability: not intractable Qualified Code(s): G44.209 - Tension-type headache, unspecified, not intractable Comments: Kitty you do have some elevated blood pressures here in the emergency department but I think most of this is attributed to stress and anxiety. I do encourage you to check your blood pressures at home once or twice a day in a calm environment. Keep a journal. If they remain elevated then we can consider starting you on a blood pressure medication. Please continue to follow-up with Dr. Walter as you are already scheduled.
[2021-09-24 16:33] LABS: RBC,URINE 0-5 /HPF (0-5); WBC,URINE 0-3 /HPF (0-5)
[2021-09-24 16:34] LABS: BACTERIA,URINE Few /HPF (None Seen); MUCUS,URINE Marked Strands; SQUAMOUS EPITHELIAL CELL,UR FEW Squamous (<= Few)
--- NOTE | 2021-09-24 17:01 | XRAY Report ---
PROCEDURE: Chest 1 View X-Ray INDICATIONS: Chest pain TECHNIQUE: One view of the chest was acquired. COMPARISON: Chest x-ray 12/07/2020 FINDINGS: Surgical changes and devices: None. Lungs and pleura: There is blunting of the costophrenic angles bilaterally. No consolidations. Mediastinum: Mediastinal contours appear normal. Heart size is normal. Bones and chest wall: No suspicious bony lesions. Overlying soft tissues appear unremarkable. IMPRESSION: Costophrenic angle blunting suggestive of trace effusions versus scarring. Reviewed by: Rhina Carson MD on 09/24/2021 5:00 PM PDT Approved by: Rhina Carson MD on 09/24/2021 5:00 PM PDT Station ID: [id number]
[2021-09-24 17:35] VITALS: BP 163/76
== END 2021-09-24 17:34 | disposition home or self-care (01) ==
LOC: ED 14:59
DX: R51.9 Headache, unspecified (principal); R03.0 Elevated blood-pressure reading, without diagnosis of hypertension
CPT/HCPCS: 36415; 80053; 81001; 81003; 83690; 84484; 85025; 87086; 93005; 96372; 99284

== ENCOUNTER 2022-08-14 14:49 | Emergency (ER) | payer BC ==
[2022-08-14 15:25] LABS: BASOPHILS % (AUTO) 0.4 %; EOSINOPHILS # (AUTO) 0.2 10^3/uL (0.0-0.7); EOSINOPHILS % (AUTO) 3.2 %; HGB - HEMOGLOBIN 12.5 g/dL (12.0-16.0); LYMPHOCYTES # (AUTO) 1.5 10^3/uL (1.5-3.5); LYMPHOCYTES % (AUTO) 19.4 %; MEAN CORPUSCULAR HEMOGLOBIN 29.9 pg (27.0-31.0); MEAN CORPUSCULAR HGB CONC 32.1 g/dL (32.0-36.0); MEAN CORPUSCULAR VOLUME 93.3 fL (81.0-99.0); MEAN PLATELET VOLUME 11.3 fL (7.9-10.8); MONOCYTES # (AUTO) 0.5 10^3/uL (0.0-1.0); MONOCYTES % (AUTO) 6.3 %; NEUTROPHILS # (AUTO) 5.3 10^3/uL (1.5-6.6); NEUTROPHILS % (AUTO) 70.6 %; PLT - PLATELET COUNT 176 10^3/uL (130-450); RED BLOOD COUNT 4.18 10^6/uL (4.20-5.40); RED CELL DISTRIBUTION WIDTH 11.9 % (12.0-15.0); WHITE BLOOD COUNT 7.5 x10^3/uL (4.8-10.8)
[2022-08-14 15:34] LABS: ALBUMIN/GLOBULIN RATIO 1.4 (1.0-2.2); BILIRUBIN,TOTAL 0.7 mg/dL (0.2-1.0); CALCIUM 9.2 mg/dL (8.5-10.3); CREATININE 0.8 mg/dL (0.4-1.0); POTASSIUM 3.2 mmol/L (3.5-5.0); TOTAL PROTEIN 6.8 g/dL (6.7-8.2)
--- NOTE | 2022-08-14 15:57 | CT Report ---
PROCEDURE: ABDOMEN/PELVIS WO INDICATIONS: LLQ pain TECHNIQUE: Noncontrast 5 mm thick sections acquired from the diaphragms to the symphysis. 5 mm coronal and sagi ttal reformats were then performed. For radiation dose reduction, the following was used: automated exposure control, adjustment of mA and/or kV according to patient size. COMPARISON: 11/09/2018. Correlation is also made with overlapping portions of chest CT, 05/26/2020. FINDINGS: Image quality: Excellent. Lung bases and heart: Minimal consolidative change can be seen within the right middle lobe, which is partially seen, as on series 4 image 1. A small hiatal hernia is incidentally noted. Liver: No solid mass. Gallbladder and biliary tree: Within normal limits. Spleen: No splenomegaly. Pancreas: No pancreatic ductal dilation. Adrenals: No adrenal nodule. Kidneys and ureters: No hydronephrosis. No renal cystic lesion which requires follow up. No solid mas s. Bowel and peritoneum: Moderate wall thickening and surrounding inflammatory change can be seen involv ing the distal sigmoid colon. There are diverticula formation can be seen within this region. No para vertebral abscess can be seen. No free air is seen. The more proximal colon is unremarkable. No dilated loops of small bowel are seen. A distal small bowel anastomotic staple line can be seen. N o significant gastric abnormality is seen. Lymph nodes: No central or retroperitoneal adenopathy. Vessels: No infrarenal aortic aneurysm. PELVIS Reproductive organs: The uterus is not well seen. Please correlate with potential hysterectomy. Calci fications are again seen associated with the right ovary. Bladder: No abnormal wall thickening, accounting for underdistension. Pelvic lymph nodes: No pelvic adenopathy by size criteria. Bones: No aggressive osseous abnormality. Mild levoconvex scoliotic curvature is seen. Other: There is a mild fat-containing periumbilical hernia. IMPRESSION: Mild to moderate sigmoid diverticulitis, without findings of perforation or abscess. Negative for kidney stone or hydronephrosis. Minimal consolidative change can be partially seen within the right middle lobe. Additional findings: Small hiatal hernia Distal small bowel and stomach staple line Mild levoconvex scoliotic curvature. Reviewed by: Gaston Marroquin MD on 08/14/2022 2:55 PM AKDT Approved by: Gaston Marroquin MD on 08/14/2022 2:55 PM JOSE Station ID: [id number]
[2022-08-14] MEDS ORDERED: POTASSIUM CHLORIDE 20 MEQ TABLET PO STA (16:11)
--- NOTE | 2022-08-14 16:11 | ED Physician Documentation ---
PD HPI ABD PAIN - Stated complaint Stated Complaint: STOMACH ACHE - Chief complaint Chief Complaint: Abd Pain - History obtained from History obtained from: Patient - History of Present Illness Timing - onset: How many days ago (2) Timing - duration: Days (2) Timing - details: Gradual onset, Still present Quality: Cramping, Sharp, Pain Location: LLQ Radiation: Lower back Improved by: Laying still Worsened by: Moving, Position, Palpation Associated symptoms: No: Fever, Nausea, Vomiting, Hematemesis, Diarrhea, Constipation Similar symptoms before: Diagnosis (diverticulitis) Recently seen: Other (gets regular infusions at the [facility] for [place]) - Additional information Additional information: 61-year-old female with a prior history of diverticulitis has developed left lower quadrant abdominal pain similar to what she had previously with diverticulitis. She is developed symptoms about 3 days ago and these have progressively worsened. She has not had fever with this. She is not in extreme pain. Review of Systems Constitutional: denies: Fever Ears: denies: Ear pain Nose: denies: Congestion Throat: denies: Sore throat Cardiac: denies: Chest pain / pressure, Palpitations Respiratory: denies: Dyspnea, Cough GI: reports: Abdominal Pain. denies: Nausea, Vomiting, Constipation, Diarrhea : denies: Dysuria, Frequency PD PAST MEDICAL HISTORY - Past Medical History Past Medical History: Yes Cardiovascular: High cholesterol Respiratory: Asthma, Cystic fibrosis, Other Endocrine/Autoimmune: None GI: GERD, Colon polyps, Diverticulitis, Other : None HEENT: Chronic vision loss Psych: None Musculoskeletal: None Derm: None - Past Surgical History Past Surgical History: Yes General: Appendectomy, Colonoscopy, EGD Ortho: Arthroscopic surgery /[employer]: Hysterectomy, section HEENT: Tonsil/Adenoidectomy - Present Medications Home Medications: Ambulatory Orders Medication Instructions Recorded Confirmed Albuterol 2.5 mg INH Q4H PRN 03/25/17 12/24/21 EPINEPHrine [Epinephrine] 0.15 mg IJ 01/05/20 Albuterol Sulf [Ventolin Hfa 1 - 2 puffs INH Q4HR PRN 12/17/20 12/24/21 Inhaler] predniSONE [Deltasone] 10 mg PO [id number] #42 tab 12/17/20 12/24/21 Azithromycin [Zithromax] 500 mg PO DAILY 12/24/21 12/24/21 Amox/Clav 875/125 [Augmentin] 1 each PO Q12H #20 tablet 08/14/22 - Allergies Allergies/Adverse Reactions: Allergies Allergy/AdvReac Type Severity Reaction Status Date / Time Gadolinium-Containing Allergy Severe Anaphylaxis Verified 01/07/22 08:47 Contrast Medi Iodinated Contrast Media Allergy Severe Anaphylaxis Verified 01/07/22 08:47 mushroom Allergy Severe Anaphylaxis Verified 01/07/22 08:47 walnut Allergy Severe Anaphylaxis Verified 01/07/22 08:47 morphine Allergy Mild Unknown Verified 01/07/22 08:47 ciprofloxacin [From Cipro] Allergy Unknown Verified 01/07/22 08:47 levofloxacin [From Levaquin] Allergy Unknown Verified 01/07/22 08:47 NSAIDS (Non-Steroidal Allergy Nausea Verified 01/07/22 08:47 Anti-Inflamma adhesive tape AdvReac Severe Itching Verified 01/07/22 08:47 codeine [Codeine] AdvReac Intermediate Hallucinati Verified 01/07/22 08:47 ons latex AdvReac Itching Verified 01/07/22 08:47 - Social History Does the pt smoke?: No Smoking Status: Never smoker Does the pt drink ETOH?: No Does the pt have substance abuse?: No - Immunizations Immunizations are current?: Yes - POLST Patient has POLST: Yes POLST Status: Full Code PD ED PE NORMAL - Vitals Vital signs reviewed: Yes (hypertensive mild ) - General General: Alert and oriented X 3, No acute distress, Well developed/nourished - HEENT HEENT: Atraumatic, PERRL, EOMI - Neck Neck: Supple, no meningeal sign, No bony TTP - Cardiac Cardiac: RRR, No murmur - Respiratory Respiratory: No respiratory distress, Clear bilaterally - Abdomen Abdomen: Normal bowel sounds, Soft, Non distended, No organomegaly, Other (Specific left lower quadrant tenderness reproducible over specific area. 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 therapist 2-12 intact, No motor deficit, No sensory deficit, Normal speech Eye Opening: Spontaneous Motor: Obeys Commands Verbal: Oriented GCS Score: 15 - Psych Psych: Normal mood, Normal affect Results - Vitals Vitals: Vital Signs - 24 hr 08/14/22 08/14/22 14:54 16:25 Temperature 36.7 C Heart Rate 90 89 Respiratory 16 16 Rate Blood Pressure 149/86 H 140/87 H O2 Saturation 98 98 Oxygen O2 Source Room air - Labs Labs: Laboratory Tests 08/14/22 08/14/22 15:13 15:13 WBC 7.5 RBC 4.18 L Hgb 12.5 Hct 39.0 MCV 93.3 MCH 29.9 MCHC 32.1 RDW 11.9 L Plt Count 176 MPV 11.3 H Neut # (Auto) 5.3 Lymph # (Auto) 1.5 [place] # (Auto) 0.5 Eos # (Auto) 0.2 Baso # (Auto) 0.0 Absolute Nucleated RBC 0.00 Nucleated RBC % 0.0 Sodium 138 Potassium 3.2 L Chloride 104 Carbon Dioxide 25 Anion Gap 9.0 BUN 11 Creatinine 0.8 Estimated GFR (MDRD) 73 L Glucose 174 H Calcium 9.2 Total Bilirubin 0.7 AST 19 ALT 16 Alkaline Phosphatase 62 Total Protein 6.8 Albumin 4.0 Globulin 2.8 Albumin/Globulin Ratio 1.4 Lipase 32 - Rads (name of study) CT ab/pel Relevant Findings:: Prelim report reviewed (Impression: Mild to moderate sigmoid diverticulitis. Without findings of perforation or abscess. Negative for kidney stone or hydronephrosis. Minimal consolidative change can be partially seen in the right middle lobe.), EMP independent interpretation of test PD Medical Decision Making - ED course Complexity details: reviewed results, re-evaluated patient, considered differential, d/w patient Reviewed Lab Results: We reviewed a complete blood count showing a normal white blood cell count normal hemoglobin hematocrit and platelets chemistries were remarkable for a low potassium low at 3.2 normal kidney and liver function. My interpretation of these benign-appearing laboratory results are not an overwhelming infection. ED course: 61-year-old female with a prior history of diverticulitis has left lower quadrant abdominal pain and examination consistent with diverticulitis and a CT scan that demonstrates what appears to be diverticulitis. She does not have elevation of the white blood cell count and she is not in extreme pain. She does have disease. She has had successful treatment previously with Augmentin. She is not able to take Cipro. Today we we will prescribe Augmentin. Departure - Departure Disposition: 01 Home, Self Care Clinical Impression: Diverticulitis Condition: Stable Instructions: ED Diverticulitis Follow-Up: Audrey Walter MD [Primary Care Provider] - Prescriptions: Amox/Clav 875/125 [Augmentin] 1 each PO Q12H #20 tablet Comments: Kitty, today looks like you have diverticulitis again. This looks uncomplicated. There is again a finding in the right middle lobe of your lung. I have E scribed some Augmentin to the [facility] in [place]. If for some reason this evening you are unable to fill this prescription this evening call my cell phone number ([phone]) and I will give you some Augmentin. Discharge Date/Time: 08/14/22 16:26
[2022-08-14 16:26] VITALS: BP 140/87
== END 2022-08-14 16:26 | disposition home or self-care (01) ==
LOC: ED 14:49
DX: K57.32 Diverticulitis of large intestine without perforation or abscess without bleeding (principal); R91.8 Other nonspecific abnormal finding of lung field; E87.6 Hypokalemia
CPT/HCPCS: 36415; 74176; 80053; 83690; 85025; 99284; A9270

== ENCOUNTER 2023-02-14 22:14 | Emergency (ER) | payer BC ==
[2023-02-14 22:22] VITALS: O2SAT 100
--- NOTE | 2023-02-14 22:59 | ED Physician Documentation ---
PD HPI LOWER EXT INJURY - Stated complaint Stated Complaint: LT ANKLE INJ - Chief complaint Chief Complaint: Trauma Ext - History obtained from History obtained from: Patient - Additional information Additional information: HPI from patient. At approximately 6 PM this evening, patient was walking when she had sudden onset left ankle pain with subsequent swelling, predominantly lateral aspect. Onset was associated with a "popping" sound/sensation. Pain is relieved with rest, exacerbated with weight-bearing. Pain is minimally exacerbated with palpation but no exacerbation with movement. Denies h/o similar symptoms (has h/o bilateral achilles tendon rupture associated with fluoroquinolone use but pain was not at ankle and has not taken fluoroquinolones in years). Review of Systems Musculoskeletal: reports: Joint pain, Joint swelling, Pain with weight bearing Neurologic: denies: Focal weakness, Numbness PD PAST MEDICAL HISTORY - Past Medical History Cardiovascular: High cholesterol Respiratory: Asthma, Cystic fibrosis, Other Endocrine/Autoimmune: None GI: GERD, Colon polyps, Diverticulitis, Other : None HEENT: Chronic vision loss Psych: None Musculoskeletal: None Derm: None - Past Surgical History Past Surgical History: Yes General: Appendectomy, Colonoscopy, EGD Ortho: Arthroscopic surgery /[employer]OL[employer]: Hysterectomy, section HEENT: Tonsil/Adenoidectomy - Present Medications Home Medications: Ambulatory Orders Medication Instructions Recorded Confirmed Albuterol 2.5 mg INH Q4H PRN 03/25/17 12/24/22 EPINEPHrine [Epinephrine] 0.15 mg IJ PRN PRN 01/05/20 12/24/22 Albuterol Sulf [Ventolin Hfa 1 - 2 puffs INH Q4HR PRN 12/17/20 12/24/22 Inhaler] Azithromycin [Zithromax] 500 mg PO DAILY 12/24/21 12/24/22 Amox/Clav 875/125 [Augmentin 1 tablet PO Q12H 10 Days #14 tablet 12/24/22 875/125 Tab] - Allergies Allergies/Adverse Reactions: Allergies Allergy/AdvReac Type Severity Reaction Status Date / Time Gadolinium-Containing Allergy Severe Anaphylaxis Verified 02/14/23 22:18 Contrast Medi Iodinated Contrast Media Allergy Severe Anaphylaxis Verified 02/14/23 22:18 mushroom Allergy Severe Anaphylaxis Verified 02/14/23 22:18 walnut Allergy Severe Anaphylaxis Verified 02/14/23 22:18 morphine Allergy Mild Unknown Verified 02/14/23 22:18 ciprofloxacin [From Cipro] Allergy Unknown Verified 02/14/23 22:18 levofloxacin [From Levaquin] Allergy Unknown Verified 02/14/23 22:18 NSAIDS (Non-Steroidal Allergy Nausea Verified 02/14/23 22:18 Anti-Inflamma adhesive tape AdvReac Severe Itching Verified 02/14/23 22:18 codeine [Codeine] AdvReac Intermediate Hallucinati Verified 02/14/23 22:18 ons latex AdvReac Itching Verified 02/14/23 22:18 - Social History Does the pt smoke?: No Smoking Status: Never smoker Does the pt drink ETOH?: No Does the pt have substance abuse?: No - Immunizations Immunizations are current?: Yes - POLST Patient has POLST: Yes POLST Status: Full Code PD ED PE NORMAL - Vitals Vital signs reviewed: Yes - General General: Alert and oriented X 3, No acute distress, Well developed/nourished - Neuro Neuro: No motor deficit, No sensory deficit PD ED PE EXPANDED - Extremities Feet visual: 1 - swelling, tenderness (TTP at and distal to distal tip of lateral malleolus) Results - Vitals Vitals: Oxygen O2 Source Room air - Rads (name of study) left ankle xrays Relevant Findings:: Prelim report reviewed, EMP independent interpretation of test (I reviewed these images and my interpretation is no evidence of acute i njury including no fracture, dislocation), See rad report PD Medical Decision Making - ED course Complexity details: reviewed results, re-evaluated patient, considered differential, d/w patient ED course: No abnormality on plain-film left ankle xrays, although obvious swelling and mild TTP of lateral aspect of left ankle c/w sprain. She has a left ankle splint (boot) at home. She is given crutches in ED prior to d/c to minimize weight- bearing. She declines analgesics. Departure - Departure Disposition: 01 Home, Self Care Clinical Impression: Left ankle sprain Qualifiers: Encounter type: initial encounter Involved ligament of ankle: unspecified ligament Qualified Code(s): S93.402A - Sprain of unspecified ligament of left ankle, initial encounter Condition: Good Instructions: ED Sprain Ankle W X Ray, ED Crutch Walking Comments: There is no evidence of injury on the plain-film x-rays of your left ankle. As we discussed, the most likely explanation is a sprain of one or more of the ligaments of the lateral aspect of your ankle, even though this occurred while walking and not with any strenuous or repetitive activity. The sudden onset, the "popping" sensation, the swelling, and the exacerbation of pain with weight- bearing all support the diagnosis of ankle sprain. Follow-up with your primary care provider in 5 to 7 days if your symptoms do not resolve. Forms: PCP List Discharge Date/Time: 02/14/23 23:43
--- NOTE | 2023-02-14 23:06 | XRAY Report ---
PROCEDURE: Ankle 3 View LT INDICATIONS: Trauma TECHNIQUE: 3 views of the ankle were acquired. COMPARISON: None. FINDINGS: Bones: No fractures or dislocations. Ankle mortise is normally aligned. No suspicious bony lesions . Soft tissues: No tibiotalar joint effusion. Achilles tendon appears normal. IMPRESSION: No acute bony abnormality. If there remains a high clinical concern for fracture, including inability to bear weight, consider cross-sectional imaging to exclude an occult fracture. Reviewed by: Alexsander Chaudhry on 02/14/2023 11:04 PM [facility] Approved by: Alexsnader Chaudhry on 02/14/2023 11:04 PM [facility] Station ID: [id number]
[2023-02-14 23:50] VITALS: BP 128/75
== END 2023-02-14 23:43 | disposition home or self-care (01) ==
LOC: ED 22:14
DX: S93.402A Sprain of unspecified ligament of left ankle, initial encounter (principal); X58.XXXA Exposure to other specified factors, initial encounter
CPT/HCPCS: 99283

== ENCOUNTER 2023-08-22 15:02 | Outpatient (CLI) | payer BC ==
--- NOTE | 2023-08-24 09:33 | Mammography Report ---
BILATERAL DIGITAL SCREENING MAMMOGRAM 3D/2D WITH EXAGGERATED CC: 08/22/2023 CLINICAL: Routine screening. Comparison is made to exams dated: 11/18/2021 mammogram, 11/10/2020 mammogram, 06/28/2019 mammogram, mammogram, 06/06/2017 mammogram, and 06/03/2016 mammogram - [facility]. Both breasts are heterogeneously dense, which may obscure small masses (category c / 51-75% glandular tissue). There is a focal asymmetry in the right breast upper outer quadrant at posterior depth. No other significant masses, calcifications, or other findings are seen in either breast. IMPRESSION: INCOMPLETE: NEEDS ADDITIONAL IMAGING EVALUATION The focal asymmetry in the right breast is indeterminate. A diagnostic mammogram and ultrasound is r ecommended. Based on the Tyrer Cuzick model (a risk assessment model) the patient's lifetime risk is 8.8% and her 10 year risk is 4.0%. According to the ACR, ACS, and NCCN guidelines, an annual breast MRI exam karen g with mammogram is recommended if the patient's lifetime risk is 20% or greater. This exam was interpreted at Station ID: [id number]. NOTE: For mammograms, a report in lay terms will be sent to the patient. Approximately 15% of breast malignancies will not be visualized mammographically. In the management of a palpable breast mass, a negative mammogram must not discourage biopsy of a clinically suspicious lesion. Electronically Signed By: Halley Fontana M.D., Ph.D. eb/:08/23/2023 09:12:48 ACR BI-RADS Category 0: Incomplete 3340F PARENCHYMAL PATTERN: (D) - The breast(s) demonstrate(s) heterogeneously dense fibroglandular pardavidy ma. BI-RADS CATEGORY: (0) - 0 Mammo and US [id number] Immediate follow-up LATERALITY: (B)
== END 2023-08-22 15:03 | disposition home or self-care (01) ==
LOC: DI 15:02
DX: Z12.31 Encounter for screening mammogram for malignant neoplasm of breast (principal); R92.333 Mammographic heterogeneous density, bilateral breasts; R92.8 Other abnormal and inconclusive findings on diagnostic imaging of breast

== ENCOUNTER 2023-09-19 07:52 | Outpatient (CLI) | payer BC ==
--- NOTE | 2023-09-19 12:37 | Ultrasound Report ---
LIMITED ULTRASOUND OF RIGHT BREAST: 09/19/2023 CLINICAL: Patient returns today to evaluate a focal asymmetry in the right breast. Comparison is made to exams dated: 09/19/2023 mammogram, 08/22/2023 mammogram, 11/18/2021 mammogram, an d 11/10/2020 mammogram - [facility]. Color flow and real-time ultrasound of the right breast 9-10 o'clock region were performed. Morejon sca le images of the real-time examination were reviewed. There is a 0.8 cm x 0.8 cm x 0.4 cm oval mass with a circumscribed margin in the right breast at 10 o 'clock posterior depth 9 cm from the nipple. This oval mass is anechoic and hypoechoic with posterio r acoustic enhancement. Color flow imaging demonstrates that there is no vascularity present. Ther e are multiple simple cysts in the surrounding upper outer quadrant of the right breast. This lesion or one of the cysts likely corresponds to the mammographic abnormality. IMPRESSION: PROBABLY BENIGN The 0.8 cm x 0.8 cm x 0.4 cm oval mass in the right breast has a differential diagnosis of a complica yomi cyst or a lymph node and is probably benign. A follow-up right ultrasound in 6 months is recommended to demonstrate stability. This exam was interpreted at Station ID: [id number]. Electronically Signed By: Jose Enrique rea/leidy:09/19/2023 10:08:34 Ultrasound BI-RADS: 3 Probably benign BI-RADS CATEGORY: (3) - 3 Ultrasound [id number] 6 month follow-up LATERALITY: (R)
--- NOTE | 2023-09-19 12:37 | Mammography Report ---
UNILATERAL RIGHT DIGITAL DIAGNOSTIC MAMMOGRAM 3D/2D: 09/19/2023 CLINICAL: Patient returns today to evaluate a focal asymmetry in the right breast. Comparison is made to exams dated: 08/22/2023 mammogram, 11/18/2021 mammogram, and 11/10/2020 mammogram - [facility]. The right breast is heterogeneously dense, which may obscure small masses (category c / 51-75% glandu lar tissue). There is an oval focal asymmetry with an obscured and circumscribed margin in the right breast at 9 o 'clock posterior depth. This is seen in additional views. No other significant masses or calcifications are seen in the breast. IMPRESSION: INCOMPLETE: NEEDS ADDITIONAL IMAGING EVALUATION The oval focal asymmetry in the right breast is indeterminate. An ultrasound is recommended. Based on the Tyrer Cuzick model (a risk assessment model) the patient's lifetime risk is 8.8% and her 10 year risk is 4.0%. According to the ACR, ACS, and NCCN guidelines, an annual breast MRI exam karen g with mammogram is recommended if the patient's lifetime risk is 20% or greater. This exam was interpreted at Station ID: [id number]. NOTE: For mammograms, a report in lay terms will be sent to the patient. Approximately 15% of breast malignancies will not be visualized mammographically. In the management of a palpable breast mass, a negative mammogram must not discourage biopsy of a clinically suspicious lesion. Electronically Signed By: Jose Enrique rea/leidy:09/19/2023 10:05:54 ACR BI-RADS Category 0: Incomplete 3340F PARENCHYMAL PATTERN: (D) - The breast(s) demonstrate(s) heterogeneously dense fibroglandular lawanda luis. BI-RADS CATEGORY: (0) - 0 Ultrasound [id number] Immediate follow-up LATERALITY: (R)
== END 2023-09-19 07:53 | disposition home or self-care (01) ==
LOC: DI 07:52
PROVIDERS: ATTEND Internal Medicine
DX: N63.11 Unspecified lump in the right breast, upper outer quadrant (principal); R92.331 Mammographic heterogeneous density, right breast

== ENCOUNTER 2023-09-19 07:55 | Outpatient (CLI) | payer BC | END 2023-09-19 07:56 | disposition home or self-care (01) | LOC: LAB 07:55 | PROVIDERS: ATTEND Internal Medicine | DX: Z00.00 Encounter for general adult medical examination without abnormal findings (principal); B44.81 Allergic bronchopulmonary aspergillosis; Z20.1 Contact with and (suspected) exposure to tuberculosis; I10 Essential (primary) hypertension; Z86.16 Personal history of COVID-19; J45.909 Unspecified asthma, uncomplicated | CPT/HCPCS: 81599 ==